=== PATIENT | female | born 1995 | race Caucasian/White ===

== ENCOUNTER 2018-10-18 18:57 | Inpatient (IN) | payer BC, MEDICAID ==
[2018-10-18] MEDS ORDERED: Tranexamic Acid 1,000 MG in Sodium Chloride 0.9% 100 ML IV PRN (19:29)
[2018-10-18] MEDS ORDERED: Carboprost Tromethamine 250 MCG/1 ML Amp IM PRN (19:29)
[2018-10-18] MEDS ORDERED: Nalbuphine 10 MG/1 ML Vial IVPUSH PRN (19:29)
[2018-10-18] MEDS ORDERED: Sodium Chloride 0.9% 2.5 ML Syringe FLUSH PRN (19:29)
[2018-10-18] MEDS ORDERED: Lidocaine 1% 50 ML MDV INJECT PRN (19:29)
[2018-10-18] MEDS ORDERED: Methylergonovine 0.2 MG/1 ML Amp IM PRN (19:29)
[2018-10-18] MEDS ORDERED: Water For Irrigation,Sterile 1,000 ML Container IRR PRN (19:29)
[2018-10-18] MEDS ORDERED: Ondansetron 4 MG/2 ML SDV IV PRN (19:29)
[2018-10-18] MEDS ORDERED: Sodium Chloride 0.9% 10 ML Syringe FLUSH PRN (19:29)
[2018-10-18] MEDS ORDERED: Misoprostol 200 MCG Tab PO PRN (19:29)
[2018-10-18] MEDS ORDERED: Oxytocin/0.9 % Sodium Chloride 30 UNIT/500 ML BAG IV SCH ×3 (19:30→19:45)
[2018-10-18] MEDS ORDERED: Dinoprostone 10 MG Insert VAG PRN (19:32)
[2018-10-18] MEDS ORDERED: Terbutaline 1 MG/ML SDV SUBCUT PRN (19:32)
[2018-10-18] MEDS: Lactated Ringers 1,000 ML IV SCH ×2 (21:19→23:52)
[2018-10-19] MEDS: Butorphanol 1 MG/ML SDV IVPUSH PRN ×2 (11:25→13:13)
--- NOTE | 2018-10-19 16:00 | PCM.DEL ---
L & D Note - General Info Date of Service: 10/19/18 Mother's Due Date: 10/25/18 - Delivery Note Labor: Spontaneous Cervical Ripening Method: Balloon Device, Oxytocin Delivery Outcome: Livebirth Delivery Mode: Vacuum Extraction Presentation: Left Occiput Anterior (NEELA) Nuchal Cord: None Prep: Other Anesthesia Type: Local, Pudendal Anesthetic: Lidocaine (Xylocaine) 0.5% Plain Local Anesthetic Volume: 1cc Amniotic Fluid Description: Clear Episiotomy Type: None Laceration: 2nd Degree Suture type: Vicryl Suture size: 3-0 Placenta: Intact, Spontaneous Cord: 3 Vessels Estimated Blood Loss: 300 Resuscitation Needed: No Score 1 min: 7 Score 5 min: 9 - General Info Date of Service: 10/19/18 - Patient Data Weight - Most Recent: 64.864 kg Lab Results Last 24 Hours: Laboratory Results - last 24 hr 10/18/18 10/18/18 10/19/18 Range/Units 19:43 19:43 10:15 WBC 8.43 (4.0-11.0) K/uL RBC 4.01 L (4.30-5.90) M/uL Hgb 12.5 (12.0-16.0) g/dL Hct 35.8 L (36.0-46.0) % MCV 89.3 (80.0-98.0) fL MCH 31.2 (27.0-32.0) pg MCHC 34.9 (31.0-37.0) g/dL RDW Std Deviation 43.1 (28.0-62.0) fl RDW Coeff of [place] 13 (11.0-15.0) % Plt Count 214 (150-400) K/uL MPV 10.60 (7.40-12.00) fL Nucleated RBC % 0.0 /100WBC Nucleated RBCs # 0 K/uL Urine Opiates Screen NEGATIVE (NEGATIVE) Ur Oxycodone Screen NEGATIVE (NEGATIVE) Urine Methadone Screen NEGATIVE (NEGATIVE) Ur Barbiturates Screen NEGATIVE (NEGATIVE) Ur Phencyclidine Scrn NEGATIVE (NEGATIVE) Ur Amphetamine Screen NEGATIVE (NEGATIVE) U Methamphetamines Scrn NEGATIVE (NEGATIVE) U Benzodiazepines Scrn NEGATIVE (NEGATIVE) U Cocaine Metab Screen NEGATIVE (NEGATIVE) U Marijuana (THC) Screen NEGATIVE (NEGATIVE) Blood Type O POSITIVE Antibody Screen NEGATIVE Med Orders - Current: Current Medications Butorphanol Tartrate (Stadol) 1 mg IVPUSH Q1H PRN PRN Reason: Pain Last Admin: 10/19/18 13:13 Dose: 1 mg Carboprost Tromethamine (Hemabate Ds) 250 mcg IM ASDIRECTED PRN PRN Reason: Post Hemorrhage Dinoprostone (Cervidil) 10 mg VAG ONETIME PRN PRN Reason: Cervical Ripening Lactated Ringer's (Ringers, Lactated) 1,000 mls @ 150 mls/hr IV ASDIRECTED LYNNE Last Admin: 10/18/18 23:52 Dose: 150 mls/hr Oxytocin/Sodium Chloride (Oxytocin 30 Unit/500 Ml-Ns) 30 unit in 500 mls @ 999 mls/hr IV TITRATE LYNNE Tranexamic Acid 1,000 mg/ (Sodium Chloride) 110 mls @ 660 mls/hr IV ONETIME PRN PRN Reason: Bleeding Oxytocin/Sodium Chloride (Oxytocin 30 Unit/500 Ml-Ns) 30 unit in 500 mls @ 2 mls/hr IV TITRATE LYNNE; Protocol Oxytocin/Sodium Chloride (Oxytocin 30 Unit/500 Ml-Ns) 30 unit in 500 mls @ 2 mls/hr IV TITRATE LYNNE; Protocol Last Titration: 10/19/18 10:30 Dose: 6 munits/min, 6 mls/hr Lidocaine HCl (Xylocaine 1%) 50 ml INJECT ONETIME PRN PRN Reason: Laceration repair Methylergonovine Maleate (Methergine) 0.2 mg IM ASDIRECTED PRN PRN Reason: Post Hemorrhage Misoprostol (Cytotec) 200 mcg PO ONETIME PRN PRN Reason: Post Hemorrhage Nalbuphine HCl (Nubain) 10 mg IVPUSH Q1H PRN PRN Reason: Pain (severe 7-10) Ondansetron HCl (Zofran) 4 mg IV Q6H PRN PRN Reason: Nausea/Vomiting Last Admin: 10/19/18 12:13 Dose: 4 mg Sodium Chloride (Saline Flush) 10 ml FLUSH ASDIRECTED PRN PRN Reason: Keep Vein Open Sodium Chloride (Saline Flush) 2.5 ml FLUSH ASDIRECTED PRN PRN Reason: Keep Vein Open Sterile Water (Sterile Water For Irrigation) 1,000 ml IRR ASDIRECTED PRN PRN Reason: delivery Terbutaline Sulfate (Brethine) 0.25 mg SUBCUT ASDIRECTED PRN PRN Reason: Tacysystole - Problem List & Annotations (1) Vaginal delivery SNOMED Code(s): 726402906 Code(s): O80 - ENCOUNTER FOR FULL-TERM UNCOMPLICATED DELIVERY Status: Acute Current Visit: Yes - Problem List Review Problem List Initiated/Reviewed/Updated: Yes - My Orders Last 24 Hours: My Active Orders 10/18/18 19:29 Patient Status [ADT] Routine May Shower [RC] ASDIRECTED Notify Provider [RC] PRN Up ad Lori [RC] ASDIRECTED Vital Signs [RC] PER UNIT ROUTINE Butorphanol [Stadol] 1 mg IVPUSH Q1H PRN Carboprost Tromethamine [Hemabate DS] 250 mcg IM ASDIRECTED PRN Lidocaine 1% [Xylocaine 1%] 50 ml INJECT ONETIME PRN Methylergonovine [Methergine] 0.2 mg IM ASDIRECTED PRN Nalbuphine [Nubain] 10 mg IVPUSH Q1H PRN Ondansetron [Zofran] 4 mg IV Q6H PRN Sodium Chloride 0.9% [Saline Flush] 10 ml FLUSH ASDIRECTED PRN Sodium Chloride 0.9% [Saline Flush] 2.5 ml FLUSH ASDIRECTED PRN Tranexamic Acid [Cyklokapron] 1,000 mg Sodium Chloride 0.9% [Normal Saline] 100 ml IV ONETIME Water For Irrigation,Sterile [Sterile Water for Irrigation] 1,000 ml IRR ASDIRECTED PRN miSOPROStol [Cytotec] 200 mcg PO ONETIME PRN Scalp Electrode [WOMSER] Per Unit Routine Peripheral IV Insertion Adult [OM.PC] Routine Resuscitation Status Routine 10/18/18 19:30 Lactated Ringers [Ringers, Lactated] 1,000 ml IV ASDIRECTED Oxytocin/0.9 % Sodium Chloride [Oxytocin 30 Unit/500 ML-NS] 30 unit in 500 ml IV TITRATE 10/18/18 19:32 Bedrest Bathroom Privileges [RC] ASDIRECTED Communication Order [RC] ASDIRECTED Communication Order [RC] ASDIRECTED Notify Provider [RC] PRN Notify Provider [RC] STAT Dinoprostone [Cervidil] 10 mg VAG ONETIME PRN Terbutaline [Brethine] 0.25 mg SUBCUT ASDIRECTED PRN 10/18/18 19:33 Medication Discontinuation Instructions [OM.PC] Per Unit Routine 10/18/18 19:35 Oxygen Therapy [RC] ASDIRECTED Vital Signs [RC] PER UNIT ROUTINE 10/18/18 19:45 Oxytocin/0.9 % Sodium Chloride [Oxytocin 30 Unit/500 ML-NS] 30 unit in 500 ml IV TITRATE Oxytocin/0.9 % Sodium Chloride [Oxytocin 30 Unit/500 ML-NS] 30 unit in 500 ml IV TITRATE 10/19/18 Breakfast Clear Liquid Diet [DIET]
[2018-10-19] MEDS ORDERED: Acetaminophen 500 MG Tab PO PRN (16:01)
[2018-10-19] MEDS ORDERED: Ibuprofen 400 MG Tab PO PRN (16:01)
[2018-10-19] MEDS ORDERED: Bisacodyl 10 MG Supp RECTAL PRN (16:01)
[2018-10-19] MEDS ORDERED: Methylergonovine 0.2 MG/1 ML Amp IM PRN (16:01)
[2018-10-19] MEDS ORDERED: oxyCODONE 5 MG Tab PO PRN (16:01)
[2018-10-19] MEDS ORDERED: Witch Hazel Medicated Pads 40/Jar TOP PRN (16:01)
[2018-10-19] MEDS ORDERED: Docusate Sodium 100 MG Cap PO PRN (16:01)
[2018-10-19] MEDS ORDERED: Lanolin 100% Cream 7 GM Tube TOP PRN (16:01)
[2018-10-19] MEDS ORDERED: Benzocaine/Menthol 20%-0.5% Spray 78 GM Cannister TOP PRN (16:01)
--- NOTE | 2018-10-19 16:52 | OR ---
SURGEON: Socorro Steven M.D. DATE OF PROCEDURE: 10/19/2018 PREOPERATIVE DIAGNOSES: 1. A 39-week intrauterine . 2. Small for gestational age. 3. History of placental abruption with prior . 4. Abnormal heart tones during labor. POSTOPERATIVE DIAGNOSES: 1. A 39-week intrauterine . 2. Small for gestational age. 3. History of placental abruption with prior . 4. Abnormal heart tones during labor. PROCEDURES: 1. Pitocin induction of labor. 2. Vacuum-assisted vaginal delivery. 3. Repair of second-degree laceration. 4. Pudendal block. PRIMARY SURGEON: Socorro Steven MD. ANESTHESIA: Pudendal and local. ESTIMATED BLOOD LOSS: Less than 300 mL. FINDINGS: 1. Live-born female. 2. scores of 7 and 9, weighing 2680 g. 3. Placenta spontaneous, Schultze, intact with 3 vessels. No evidence of placental abruption on initial examination. Placenta sent to Pathology. 4. Second-degree perineal laceration repaired. BRIEF HISTORY: This is a 23-year-old female. She presents for induction of labor at 39 weeks for intrauterine growth restriction. The abdomen is measuring less than the third percentile; estimated weight at 2600 g; and she has been followed with biophysical profiles and umbilical artery Dopplers which have been reassuring. She has a history of a due to placental abruption. She has been on [place] throughout the . She presents for induction of labor. Upon initial presentation, she had abnormal heart tones with episodes of tachycardia, marked variability, and variable decelerations. She was monitored throughout the night without intervention. By morning, she had category 1 heart tones. However, I did not feel that any prostaglandin was appropriate given the scenario. Therefore, I did place a balloon in the cervix and started Pitocin. Within 3 hours, the balloon had been expelled. She was 4 cm to 5 cm dilated, and artificial rupture of membranes was performed. Clear fluid noted. She declined epidural. She had episodes of moderate variability throughout labor with accelerations, and no significant decelerations until the last hour of labor. DESCRIPTION OF PROCEDURE: With the patient in dorsal lithotomy position, the patient pushed over a 30- minute time period to a 4+ station. At this time, heart tones were in the 80s with poor recovery. I offered to assist with vacuum. The fetus was in a left occiput anterior position, and the bladder had been drained. 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 I reviewed the risks of vacuum assistance with her including risk of cephalhematoma, scalp laceration, and intracranial hemorrhage, as well as the risk of perineal tears. Understanding these risks, she does desire to proceed. With the patient in dorsal lithotomy position, after pushing for approximately 30 minutes, pushing to a 4+ station, the vacuum was placed 2 cm anterior to the posterior fontanelle in the mid sagittal line; and with maternal expulsive efforts, I assisted pushing over 1 contraction with no pop offs and delivered the head onto the perineum. There was a fairly tight cord, but it was not completely wrapped around the neck. The shoulders and body were delivered. The was bulb suctioned by nose and mouth. Peds had been called due to the abnormal heart tones, however, scores were 7 and 9. After the cord had ceased to pulsate, it was doubly clamped and cut. Cord pHs were obtained as well as routine cord blood sampling. Pitocin was initiated after delivery of the to assist with delivery of the placenta which was delivered spontaneously, Schultze, intact with 3 vessels. On inspection of the placenta, it did not reveal any areas of abruption. Upon inspection of the pelvis and perineum, there were no periurethral, vaginal sidewall, or cervical lacerations. There was a second-degree perineal laceration. Prior to pushing, pudendal block had been placed by placing 10 mL of 1% lidocaine 1 cm medial and inferior to the spinous process, and she had good perineal relief with this. However, after delivery, I did supplement with approximately another 10 mL of 1% lidocaine in the perineum. A 3-0 Vicryl was then used to reapproximate the vaginal mucosa in a running locked fashion, followed by a deep running suture of the same for the perineum and a subcuticular suture of the same for the skin. Final sponge, needle, and instrument count were correct. There were no known complications. Mother and baby are in LDRP in good condition. FITZ / URBANO /[id number]
[2018-10-19] MEDS: Ibuprofen 800 MG Tab PO PRN (17:05)
[2018-10-19] MEDS: Acetaminophen 500 MG Tab PO PRN (17:18)
[2018-10-20] MEDS: Ibuprofen 800 MG Tab PO PRN (01:24)
[2018-10-20] MEDS ORDERED: Methylergonovine 0.2 MG/1 ML Amp ONE (04:31)
[2018-10-20] MEDS: Acetaminophen 500 MG Tab PO PRN ×2 (04:52→23:19)
--- NOTE | 2018-10-20 06:40 | PCM.PNPP ---
- General Info Date of Service: 10/20/18 Functional Status: Reports: Pain Controlled, Tolerating Diet, Ambulating, Urinating, Other (passed clot 250 ml early this am, received one dose of methergine, bleeding now improved. ) - Review of Systems General: Reports: No Symptoms HEENT: Reports: No Symptoms Pulmonary: Reports: No Symptoms Cardiovascular: Reports: No Symptoms Gastrointestinal: Reports: No Symptoms Genitourinary: Reports: No Symptoms Musculoskeletal: Reports: No Symptoms Skin: Reports: No Symptoms Neurological: Reports: No Symptoms Psychiatric: Reports: No Symptoms - General Info Date of Service: 10/20/18 - Patient Data Vital Signs - Most Recent: Last Vital Signs Temp 36.7 C 10/20/18 04:15 Pulse 74 10/20/18 04:15 Resp 17 10/20/18 04:15 BP 98/59 L 10/20/18 04:15 Pulse Ox 97 10/20/18 04:15 Weight - Most Recent: 64.864 kg Lab Results - Last 24 Hours: Laboratory Results - last 24 hr 10/19/18 10/20/18 Range/Units 10:15 04:55 Hgb 10.8 L (12.0-16.0) g/dL Hct 31.3 L (36.0-46.0) % Urine Opiates Screen NEGATIVE (NEGATIVE) Ur Oxycodone Screen NEGATIVE (NEGATIVE) Urine Methadone Screen NEGATIVE (NEGATIVE) Ur Barbiturates Screen NEGATIVE (NEGATIVE) Ur Phencyclidine Scrn NEGATIVE (NEGATIVE) Ur Amphetamine Screen NEGATIVE (NEGATIVE) U Methamphetamines Scrn NEGATIVE (NEGATIVE) U Benzodiazepines Scrn NEGATIVE (NEGATIVE) U Cocaine Metab Screen NEGATIVE (NEGATIVE) U Marijuana (THC) Screen NEGATIVE (NEGATIVE) Med Orders - Current: Current Medications Acetaminophen (Tylenol Extra Strength) 500 mg PO Q4H PRN PRN Reason: Pain Last Admin: 10/20/18 04:52 Dose: 500 mg Acetaminophen (Tylenol Extra Strength) 1,000 mg PO Q4H PRN PRN Reason: Pain Benzocaine/Menthol (Dermoplast Pain Relief 20%-0.5% [place]) 78 gm TOP ASDIRECTED PRN PRN Reason: Perineal Comfort Measure Last Admin: 10/19/18 17:23 Dose: 1 canister Bisacodyl (Dulcolax) 10 mg RECTAL ONETIME PRN PRN Reason: Constipation Docusate Sodium (Colace) 100 mg PO BID PRN PRN Reason: Constipation Last Admin: 10/19/18 21:43 Dose: 100 mg Emollient Ointment (Lansinoh Hpa) 0 gm TOP ASDIRECTED PRN PRN Reason: Sore Nipples Ibuprofen (Motrin) 400 mg PO Q4H PRN PRN Reason: Pain Ibuprofen (Motrin) 800 mg PO Q6H PRN PRN Reason: Pain Last Admin: 10/20/18 01:24 Dose: 800 mg Methylergonovine Maleate (Methergine) 0.2 mg IM ONETIME PRN PRN Reason: Excessive Vaginal Bleeding Last Admin: 10/20/18 04:40 Dose: 0.2 mg Oxycodone HCl (Oxycodone) 5 mg PO Q2H PRN PRN Reason: Pain Last Admin: 10/19/18 17:21 Dose: 5 mg Witch Therese (Tucks) 1 pad TOP ASDIRECTED PRN PRN Reason: comfort care Last Admin: 10/19/18 17:21 Dose: 1 container Discontinued Medications Butorphanol Tartrate (Stadol) 1 mg IVPUSH Q1H PRN PRN Reason: Pain Last Admin: 10/19/18 13:13 Dose: 1 mg Carboprost Tromethamine (Hemabate Ds) 250 mcg IM ASDIRECTED PRN PRN Reason: Post Hemorrhage Dinoprostone (Cervidil) 10 mg VAG ONETIME PRN PRN Reason: Cervical Ripening Lactated Ringer's (Ringers, Lactated) 1,000 mls @ 150 mls/hr IV ASDIRECTED LYNNE Last Admin: 10/18/18 23:52 Dose: 150 mls/hr Oxytocin/Sodium Chloride (Oxytocin 30 Unit/500 Ml-Ns) 30 unit in 500 mls @ 999 mls/hr IV TITRATE LYNNE Tranexamic Acid 1,000 mg/ (Sodium Chloride) 110 mls @ 660 mls/hr IV ONETIME PRN PRN Reason: Bleeding Oxytocin/Sodium Chloride (Oxytocin 30 Unit/500 Ml-Ns) 30 unit in 500 mls @ 2 mls/hr IV TITRATE LYNNE; Protocol Oxytocin/Sodium Chloride (Oxytocin 30 Unit/500 Ml-Ns) 30 unit in 500 mls @ 2 mls/hr IV TITRATE LYNNE; Protocol Last Titration: 10/19/18 15:40 Dose: 500 munits/min, 500 mls/hr Lidocaine HCl (Xylocaine 1%) 50 ml INJECT ONETIME PRN PRN Reason: Laceration repair Last Admin: 10/19/18 15:30 Dose: 50 ml Methylergonovine Maleate (Methergine) 0.2 mg IM ASDIRECTED PRN PRN Reason: Post Hemorrhage Methylergonovine Maleate (Methergine) Confirm Administered Dose 0.2 mg .ROUTE .[facility] Stop: 10/20/18 04:32 Misoprostol (Cytotec) 200 mcg PO ONETIME PRN PRN Reason: Post Hemorrhage Nalbuphine HCl (Nubain) 10 mg IVPUSH Q1H PRN PRN Reason: Pain (severe 7-10) Ondansetron HCl (Zofran) 4 mg IV Q6H PRN PRN Reason: Nausea/Vomiting Last Admin: 10/19/18 12:13 Dose: 4 mg Sodium Chloride (Saline Flush) 10 ml FLUSH ASDIRECTED PRN PRN Reason: Keep Vein Open Sodium Chloride (Saline Flush) 2.5 ml FLUSH ASDIRECTED PRN PRN Reason: Keep Vein Open Sterile Water (Sterile Water For Irrigation) 1,000 ml IRR ASDIRECTED PRN PRN Reason: delivery Last Admin: 10/19/18 15:30 Dose: 1,000 ml Terbutaline Sulfate (Brethine) 0.25 mg SUBCUT ASDIRECTED PRN PRN Reason: Tacysystole - Infant Interaction Disposition, : in Room with Family Interaction: Holding Support Person: Significant Other - Recovery Exam Fundal Tone: Firm Fundal Level: At Umbilicus Fundal Placement: Midline Lochia Amount: Moderate Lochia Color: Brownish Perineum Description: Ecchymotic, Edematous Episiotomy/Laceration: Approximated Bladder Status: Voiding Urinary Elimination: Voided - Exam General: Alert, Oriented Neck: Supple Lungs: Normal Respiratory Effort GI/Abdominal Exam: Soft, Non-Tender, No Organomegaly, No Distention, No Abnormal Bruit Extremities: Normal Inspection, Non-Tender, No Pedal Edema Skin: Warm, Dry, Intact Wound/Incisions: Healing Well Neurological: No New Focal Deficit Psy/Mental Status: Alert, Normal Affect, Normal Mood - Problem List & Annotations (1) Vaginal delivery SNOMED Code(s): 250974414 Code(s): O80 - ENCOUNTER FOR FULL-TERM UNCOMPLICATED DELIVERY Status: Acute Current Visit: Yes - Problem List Review Problem List Initiated/Reviewed/Updated: Yes - My Orders Last 24 Hours: My Active Orders 10/19/18 16:01 Patient Status [ADT] Routine May Shower [RC] ASDIRECTED Up ad Lori [RC] ASDIRECTED Vital Signs [RC] PER UNIT ROUTINE Acetaminophen [Tylenol Extra Strength] 1,000 mg PO Q4H PRN Acetaminophen [Tylenol Extra Strength] 500 mg PO Q4H PRN Benzocaine/Menthol [Dermoplast Pain Relief 20%-0.5% [place]] 78 gm TOP ASDIRECTED PRN Bisacodyl [Dulcolax] 10 mg RECTAL ONETIME PRN Docusate Sodium [Colace] 100 mg PO BID PRN Ibuprofen [Motrin] 400 mg PO Q4H PRN Ibuprofen [Motrin] 800 mg PO Q6H PRN Lanolin [Lansinoh HPA] See Dose Instructions TOP ASDIRECTED PRN Methylergonovine [Methergine] 0.2 mg IM ONETIME PRN Witch Therese [Tucks] 1 pad TOP ASDIRECTED PRN oxyCODONE 5 mg PO Q2H PRN Assess Lochia [WOMSER] Per Unit Routine Assess Uterine Involution [WOMSER] Per Unit Routine Perineal Care [OM.PC] Per Unit Routine Peripheral IV Discontinue [OM.PC] Routine Resuscitation Status Routine 10/19/18 16:02 Omeprazole Magnesium [Prilosec Otc] DOSE UNIT RTE FREQ PRN 10/19/18 16:15 PNV #116/Iron Fumarate/FA/DHA [Expecta Combo Pack] DOSE UNIT RTE FREQ 10/19/18 Dinner Regular Diet [DIET] - Assessment Assessment:: PPD#1 after , increased bleeding last night improved after methergine, vitals stable and hemoglobin is normal for . - Plan Plan:: Continue with care, anticipate discharge in am, recheck hemoglobin in am.
[2018-10-21 07:45] VITALS: BP 106/56
--- NOTE | 2018-10-21 08:09 | PCM.PNPP ---
<Alyce Aranda - Last Filed: 10/21/18 08:07> - General Info Date of Service: 10/21/18 Functional Status: Reports: Pain Controlled, Tolerating Diet, Ambulating, Urinating - Review of Systems General: Denies: Fever, Weakness, Fatigue Pulmonary: Denies: Shortness of Breath, Pleuritic Chest Pain, Cough Cardiovascular: Denies: Chest Pain, Palpitations, Dyspnea on Exertion Gastrointestinal: Denies: Abdominal Pain Genitourinary: Denies: Dysuria - General Info Date of Service: 10/21/18 - Patient Data Vital Signs - Most Recent: Last Vital Signs Temp 36.8 C 10/21/18 07:10 Pulse 77 10/21/18 07:10 Resp 17 10/21/18 07:10 BP 106/56 L 10/21/18 07:10 Pulse Ox 98 10/21/18 07:10 Weight - Most Recent: 64.864 kg Lab Results - Last 24 Hours: Laboratory Results - last 24 hr 10/21/18 Range/Units 06:55 WBC 10.31 (4.0-11.0) K/uL RBC 3.24 L (4.30-5.90) M/uL Hgb 10.2 L (12.0-16.0) g/dL Hct 29.4 L (36.0-46.0) % MCV 90.7 (80.0-98.0) fL MCH 31.5 (27.0-32.0) pg MCHC 34.7 (31.0-37.0) g/dL RDW Std Deviation 44.4 (28.0-62.0) fl RDW Coeff of Ashanti 14 (11.0-15.0) % Plt Count 173 (150-400) K/uL MPV 10.00 (7.40-12.00) fL Nucleated RBC % 0.0 /100WBC Nucleated RBCs # 0 K/uL Med Orders - Current: Current Medications Acetaminophen (Tylenol Extra Strength) 500 mg PO Q4H PRN PRN Reason: Pain Last Admin: 10/20/18 23:19 Dose: 500 mg Acetaminophen (Tylenol Extra Strength) 1,000 mg PO Q4H PRN PRN Reason: Pain Last Admin: 10/20/18 13:38 Dose: 1,000 mg Benzocaine/Menthol (Dermoplast Pain Relief 20%-0.5% Darling) 78 gm TOP ASDIRECTED PRN PRN Reason: Perineal Comfort Measure Last Admin: 10/19/18 17:23 Dose: 1 canister Bisacodyl (Dulcolax) 10 mg RECTAL ONETIME PRN PRN Reason: Constipation Docusate Sodium (Colace) 100 mg PO BID PRN PRN Reason: Constipation Last Admin: 10/19/18 21:43 Dose: 100 mg Emollient Ointment (Lansinoh Hpa) 0 gm TOP ASDIRECTED PRN PRN Reason: Sore Nipples Ibuprofen (Motrin) 400 mg PO Q4H PRN PRN Reason: Pain Ibuprofen (Motrin) 800 mg PO Q6H PRN PRN Reason: Pain Last Admin: 10/20/18 01:24 Dose: 800 mg Methylergonovine Maleate (Methergine) 0.2 mg IM ONETIME PRN PRN Reason: Excessive Vaginal Bleeding Last Admin: 10/20/18 04:40 Dose: 0.2 mg Oxycodone HCl (Oxycodone) 5 mg PO Q2H PRN PRN Reason: Pain Last Admin: 10/19/18 17:21 Dose: 5 mg Witch Therese (Tucks) 1 pad TOP ASDIRECTED PRN PRN Reason: comfort care Last Admin: 10/19/18 17:21 Dose: 1 container Discontinued Medications Butorphanol Tartrate (Stadol) 1 mg IVPUSH Q1H PRN PRN Reason: Pain Last Admin: 10/19/18 13:13 Dose: 1 mg Carboprost Tromethamine (Hemabate Ds) 250 mcg IM ASDIRECTED PRN PRN Reason: Post Hemorrhage Dinoprostone (Cervidil) 10 mg VAG ONETIME PRN PRN Reason: Cervical Ripening Lactated Ringer's (Ringers, Lactated) 1,000 mls @ 150 mls/hr IV ASDIRECTED LYNNE Last Admin: 10/18/18 23:52 Dose: 150 mls/hr Oxytocin/Sodium Chloride (Oxytocin 30 Unit/500 Ml-Ns) 30 unit in 500 mls @ 999 mls/hr IV TITRATE LYNNE Tranexamic Acid 1,000 mg/ (Sodium Chloride) 110 mls @ 660 mls/hr IV ONETIME PRN PRN Reason: Bleeding Oxytocin/Sodium Chloride (Oxytocin 30 Unit/500 Ml-Ns) 30 unit in 500 mls @ 2 mls/hr IV TITRATE LYNNE; Protocol Oxytocin/Sodium Chloride (Oxytocin 30 Unit/500 Ml-Ns) 30 unit in 500 mls @ 2 mls/hr IV TITRATE LYNNE; Protocol Last Titration: 10/19/18 15:40 Dose: 500 munits/min, 500 mls/hr Lidocaine HCl (Xylocaine 1%) 50 ml INJECT ONETIME PRN PRN Reason: Laceration repair Last Admin: 10/19/18 15:30 Dose: 50 ml Methylergonovine Maleate (Methergine) 0.2 mg IM ASDIRECTED PRN PRN Reason: Post Hemorrhage Methylergonovine Maleate (Methergine) Confirm Administered Dose 0.2 mg .ROUTE .[email or web address]MED ONE Stop: 10/20/18 04:32 Last Admin: 10/20/18 08:26 Dose: Not Given Misoprostol (Cytotec) 200 mcg PO ONETIME PRN PRN Reason: Post Hemorrhage Nalbuphine HCl (Nubain) 10 mg IVPUSH Q1H PRN PRN Reason: Pain (severe 7-10) Ondansetron HCl (Zofran) 4 mg IV Q6H PRN PRN Reason: Nausea/Vomiting Last Admin: 10/19/18 12:13 Dose: 4 mg Sodium Chloride (Saline Flush) 10 ml FLUSH ASDIRECTED PRN PRN Reason: Keep Vein Open Sodium Chloride (Saline Flush) 2.5 ml FLUSH ASDIRECTED PRN PRN Reason: Keep Vein Open Sterile Water (Sterile Water For Irrigation) 1,000 ml IRR ASDIRECTED PRN PRN Reason: delivery Last Admin: 10/19/18 15:30 Dose: 1,000 ml Terbutaline Sulfate (Brethine) 0.25 mg SUBCUT ASDIRECTED PRN PRN Reason: Tacysystole - Infant Interaction Infant Disposition, : in Room with Family Interaction: Holding Infant Support Person: Significant Other - Recovery Exam Fundal Tone: Firm Fundal Level: 2 Fingerbreadths Below Umbilicus Fundal Placement: Midline Lochia Amount: Small Lochia Color: Rubra/Red Perineum Description: Other (see below) Other Perinuem Description: 2nd degree midline laceration Episiotomy/Laceration: Approximated Bladder Status: Voiding Urinary Elimination: Voided - Exam General: Alert, Oriented Neck: Supple Lungs: Clear to Auscultation, Normal Respiratory Effort Cardiovascular: Regular Rate, Regular Rhythm GI/Abdominal Exam: Normal Bowel Sounds, Soft, Non-Tender, No Distention, No Mass Extremities: Normal Inspection, Non-Tender, Normal Capillary Refill, Pedal Edema (trace) Skin: Warm, Dry, Intact - Problem List & Annotations (1) Vaginal delivery SNOMED Code(s): 095388822 Code(s): O80 - ENCOUNTER FOR FULL-TERM UNCOMPLICATED DELIVERY Status: Acute Current Visit: Yes - Problem List Review Problem List Initiated/Reviewed/Updated: Yes - Assessment Assessment:: PPD#2 after , Minimal bleeding since dose of Methergine. Vitals stable and hemoglobin is normal for . - Plan Plan:: Discharge home today. Can use OTC ibuprofen/tylenol as needed for pain. Instructed patient to call if she develops fever greater than 101 or bleeding through a large pad an hour. F/U with [facility] in 6 weeks <Dyan Molina - Last Filed: 10/21/18 08:22> - Patient Data Vital Signs - Most Recent: Last Vital Signs Temp 36.8 C 10/21/18 07:10 Pulse 77 10/21/18 07:10 Resp 17 10/21/18 07:10 BP 106/56 L 10/21/18 07:10 Pulse Ox 98 10/21/18 07:10 Lab Results - Last 24 Hours: Laboratory Results - last 24 hr 10/21/18 Range/Units 06:55 WBC 10.31 (4.0-11.0) K/uL RBC 3.24 L (4.30-5.90) M/uL Hgb 10.2 L (12.0-16.0) g/dL Hct 29.4 L (36.0-46.0) % MCV 90.7 (80.0-98.0) fL MCH 31.5 (27.0-32.0) pg MCHC 34.7 (31.0-37.0) g/dL RDW Std Deviation 44.4 (28.0-62.0) fl RDW Coeff of Ash[place] 14 (11.0-15.0) % Plt Count 173 (150-400) K/uL MPV 10.00 (7.40-12.00) fL Nucleated RBC % 0.0 /100WBC Nucleated RBCs # 0 K/uL Med Orders - Current: Current Medications Acetaminophen (Tylenol Extra Strength) 500 mg PO Q4H PRN PRN Reason: Pain Last Admin: 10/20/18 23:19 Dose: 500 mg Acetaminophen (Tylenol Extra Strength) 1,000 mg PO Q4H PRN PRN Reason: Pain Last Admin: 10/20/18 13:38 Dose: 1,000 mg Benzocaine/Menthol (Dermoplast Pain Relief 20%-0.5% Darling) 78 gm TOP ASDIRECTED PRN PRN Reason: Perineal Comfort Measure Last Admin: 10/19/18 17:23 Dose: 1 canister Bisacodyl (Dulcolax) 10 mg RECTAL ONETIME PRN PRN Reason: Constipation Docusate Sodium (Colace) 100 mg PO BID PRN PRN Reason: Constipation Last Admin: 10/19/18 21:43 Dose: 100 mg Emollient Ointment (Lansinoh Hpa) 0 gm TOP ASDIRECTED PRN PRN Reason: Sore Nipples Ibuprofen (Motrin) 400 mg PO Q4H PRN PRN Reason: Pain Ibuprofen (Motrin) 800 mg PO Q6H PRN PRN Reason: Pain Last Admin: 10/21/18 08:21 Dose: 800 mg Methylergonovine Maleate (Methergine) 0.2 mg IM ONETIME PRN PRN Reason: Excessive Vaginal Bleeding Last Admin: 10/20/18 04:40 Dose: 0.2 mg Oxycodone HCl (Oxycodone) 5 mg PO Q2H PRN PRN Reason: Pain Last Admin: 10/19/18 17:21 Dose: 5 mg Witch Therese (Tucks) 1 pad TOP ASDIRECTED PRN PRN Reason: comfort care Last Admin: 10/19/18 17:21 Dose: 1 container Discontinued Medications Butorphanol Tartrate (Stadol) 1 mg IVPUSH Q1H PRN PRN Reason: Pain Last Admin: 10/19/18 13:13 Dose: 1 mg Carboprost Tromethamine (Hemabate Ds) 250 mcg IM ASDIRECTED PRN PRN Reason: Post Hemorrhage Dinoprostone (Cervidil) 10 mg VAG ONETIME PRN PRN Reason: Cervical Ripening Lactated Ringer's (Ringers, Lactated) 1,000 mls @ 150 mls/hr IV ASDIRECTED LYNNE Last Admin: 10/18/18 23:52 Dose: 150 mls/hr Oxytocin/Sodium Chloride (Oxytocin 30 Unit/500 Ml-Ns) 30 unit in 500 mls @ 999 mls/hr IV TITRATE LYNEN Tranexamic Acid 1,000 mg/ (Sodium Chloride) 110 mls @ 660 mls/hr IV ONETIME PRN PRN Reason: Bleeding Oxytocin/Sodium Chloride (Oxytocin 30 Unit/500 Ml-Ns) 30 unit in 500 mls @ 2 mls/hr IV TITRATE LYNNE; Protocol Oxytocin/Sodium Chloride (Oxytocin 30 Unit/500 Ml-Ns) 30 unit in 500 mls @ 2 mls/hr IV TITRATE LYNNE; Protocol Last Titration: 10/19/18 15:40 Dose: 500 munits/min, 500 mls/hr Lidocaine HCl (Xylocaine 1%) 50 ml INJECT ONETIME PRN PRN Reason: Laceration repair Last Admin: 10/19/18 15:30 Dose: 50 ml Methylergonovine Maleate (Methergine) 0.2 mg IM ASDIRECTED PRN PRN Reason: Post Hemorrhage Methylergonovine Maleate (Methergine) Confirm Administered Dose 0.2 mg .ROUTE .[facility] [[email or web address]MED ONE Stop: 10/20/18 04:32 Last Admin: 10/20/18 08:26 Dose: Not Given Misoprostol (Cytotec) 200 mcg PO ONETIME PRN PRN Reason: Post Hemorrhage Nalbuphine HCl (Nubain) 10 mg IVPUSH Q1H PRN PRN Reason: Pain (severe 7-10) Ondansetron HCl (Zofran) 4 mg IV Q6H PRN PRN Reason: Nausea/Vomiting Last Admin: 10/19/18 12:13 Dose: 4 mg Sodium Chloride (Saline Flush) 10 ml FLUSH ASDIRECTED PRN PRN Reason: Keep Vein Open Sodium Chloride (Saline Flush) 2.5 ml FLUSH ASDIRECTED PRN PRN Reason: Keep Vein Open Sterile Water (Sterile Water For Irrigation) 1,000 ml IRR ASDIRECTED PRN PRN Reason: delivery Last Admin: 10/19/18 15:30 Dose: 1,000 ml Terbutaline Sulfate (Brethine) 0.25 mg SUBCUT ASDIRECTED PRN PRN Reason: Tacysystole - Plan Plan:: Patient seen and examined, agree with above
[2018-10-21] MEDS: Ibuprofen 800 MG Tab PO PRN (08:21)
== END 2018-10-21 10:30 | disposition home or self-care (01) | DRG 560 ==
LOC: MW.OBCHECK 18:57 → MW.OB 19:05 → MW.OBCHECK 19:29 → MW.OB 19:29 → OBSVTOIN 10-19 16:01 → MW.OB 10-19 19:00
PROVIDERS: ADMIT Obstetrics & Gynecology; ATTEND Obstetrics & Gynecology
PROC: 0U7C7ZZ Dilation of Cervix, Via Natural or Artificial Opening (ICD-10-PCS; principal; 2018-10-19)
PROC: 10907ZC Drainage of Amniotic Fluid, Therapeutic from Products of Conception, Via Natural or Artificial Opening (ICD-10-PCS; principal; 2018-10-19)
PROC: 6A550ZT Pheresis of Cord Blood Stem Cells, Single (ICD-10-PCS; principal; 2018-10-19)
PROC: 0KQM0ZZ Repair Perineum Muscle, Open Approach (ICD-10-PCS; principal; 2018-10-19)
PROC: 3E033VJ Introduction of Other Hormone into Peripheral Vein, Percutaneous Approach (ICD-10-PCS; principal; 2018-10-19)
PROC: 10D07Z6 Extraction of Products of Conception, Vacuum, Via Natural or Artificial Opening (ICD-10-PCS; principal; 2018-10-19)
DX: O36.5930 Maternal care for other known or suspected poor fetal growth, third trimester, not applicable or unspecified (principal); O70.1 Second degree perineal laceration during delivery; O76 Abnormality in fetal heart rate and rhythm complicating labor and delivery; O69.1XX0 Labor and delivery complicated by cord around neck, with compression, not applicable or unspecified; Z3A.39 39 weeks gestation of pregnancy; Z37.0 Single live birth; O72.2 Delayed and secondary postpartum hemorrhage
CPT/HCPCS: 36415; 59025; 59200; 59409; 80305-QW; 85014; 85018; 85027; 86850; 86900; 86901; 88307; A9270-GY; J0595; J2001; J2210; J2405; J2590; J7120

== ENCOUNTER 2018-10-23 13:23 | Inpatient (IN) | payer BC, MEDICAID ==
[2018-10-23] MEDS ORDERED: Sodium Chloride 0.9% 1,000 ML IV ONE ×2 (13:44→15:08)
--- NOTE | 2018-10-23 13:46 | EDM.PDOC ---
ED HPI GENERAL MEDICAL PROBLEM - General Chief Complaint: General Stated Complaint: BACK HURTING AND CHILLS Time Seen by Provider: 10/23/18 13:45 Source of Information: Reports: Patient History Limitations: Reports: No Limitations - History of Present Illness INITIAL COMMENTS - FREE TEXT/NARRATIVE: HISTORY AND PHYSICAL: History of present illness: Patient is a 23-year-old female here with complaint of back pain and chills that began 1 hour ago. She is 5 days post , vaginal delivery without complications. She did not receive an epidural. She denies chest pain, shortness of breath, new or worsening abdominal pain, cough, purulent vaginal discharge, headache. She states she did have a single episode of diarrhea prior to coming to the ED. She is some but mostly formula feeding, she denies breast pain or erythema. Review of systems: As per history of present illness and below otherwise all systems reviewed and negative. Past medical history: As per history of present illness and as reviewed below otherwise noncontributory. Surgical history: As per history of present illness and as reviewed below otherwise noncontributory. Social history: No reported history of drug or alcohol abuse. Family history: As per history of present illness and as reviewed below otherwise noncontributory. Physical exam: General: Patient sitting comfortably in no acute distress and nontoxic appearing HEENT: Atraumatic, normocephalic, pupils reactive, negative for conjunctival pallor or scleral icterus, mucous membranes moist, throat clear, neck supple, nontender, trachea midline. No meningeal signs. Lungs: Clear to auscultation, breath sounds equal bilaterally, chest nontender. Heart: S1S2, regular, negative for clicks, rubs, or overt murmur. Abdomen: Moderate abdominal tenderness to palpation. Soft, nondistended. Negative for masses or hepatosplenomegaly. Right costovertebral tenderness. Pelvis: Stable nontender. Genitourinary: Deferred. Rectal: Deferred. Spine: pain to palpation of lumbar paraspinals bilaterally. Extremities: Atraumatic, negative for cords or calf pain. Neurovascular unremarkable. Neuro: Awake, alert, oriented. Cranial nerves II through XII unremarkable. Cerebellum unremarkable. Motor and sensory unremarkable throughout. Exam nonfocal. Notes: Diagnostics: CBC, CMP, d-dimer, UA, blood culture x 2, EKG, lipase, Type & Screen Therapeutics: 2L Normal Saline IV Zosyn IV Vancomycin IV Prescriptions: Impression: Pyelonephritis, r/o sepsis Plan: Discussed with Dr. Munson, patient will be admitted to inpatient for pyelonephritis and rule out sepsis. Definitive disposition and diagnosis as appropriate pending reevaluation and review of above. back Pain Score (Numeric/FACES): 10 - Related Data Allergies Allergy/AdvReac Type Severity Reaction Status Date / Time No Known Allergies Allergy Verified 10/23/18 13:30 Home Meds: Home Meds Omeprazole Magnesium [Prilosec Otc] 10/18/18 [History] PNV #116/Iron Fumarate/FA/DHA [Expecta Combo Pack] 1 10/18/18 [History] Past Medical History - Past Health History Medical/Surgical History: Denies Medical/Surgical History HEENT History: Reports: None Cardiovascular History: Reports: None Respiratory History: Reports: None Gastrointestinal History: Reports: None Genitourinary History: Reports: None MANAGER ADMINISTRATION History: Reports: Musculoskeletal History: Reports: None Neurological History: Reports: None Psychiatric History: Reports: None Endocrine/Metabolic History: Reports: None Hematologic History: Reports: None Immunologic History: Reports: None Oncologic (Cancer) History: Reports: None Dermatologic History: Reports: None - Infectious Disease History Infectious Disease History: Reports: Chicken Pox - Past Surgical History Head Surgeries/Procedures: Reports: None HEENT Surgical History: Reports: None Cardiovascular Surgical History: Reports: None Respiratory Surgical History: Reports: None GI Surgical History: Reports: None Female Surgical History: Reports: None Endocrine Surgical History: Reports: None Neurological Surgical History: Reports: None Musculoskeletal Surgical History: Reports: None Oncologic Surgical History: Reports: None Dermatological Surgical History: Reports: None Social & Family History - Family History Family Medical History: Noncontributory HEENT: Reports: None Cardiac: Reports: None Respiratory: Reports: None GI: Reports: None : Reports: None OBGYN: Reports: None Musculoskeletal: Reports: None Neurological: Reports: None Psychiatric: Reports: None Endocrine/Metabolic: Reports: None Hematologic: Reports: None Dermatologic: Reports: None Oncologic: Reports: None - Tobacco Use Smoking Status *Q: Never Smoker - Caffeine Use Caffeine Use: Reports: Coffee, Soda Caffeine Use Comment: 1 cup, 1 can /day - Recreational Drug Use Recreational Drug Use: No - Living Situation & Occupation Living situation: Reports: with Family ED ROS GENERAL - Review of Systems Review Of Systems: ROS reveals no pertinent complaints other than HPI. ED EXAM, GENERAL - Physical Exam Exam: See Below (see dictation) Course - Vital Signs Last Recorded V/S: Last Vital Signs Temp 98.7 F 10/23/18 13:30 Pulse 114 H 10/23/18 14:40 Resp 22 H 10/23/18 13:30 BP 105/51 L 10/23/18 14:40 Pulse Ox 98 10/23/18 14:40 - Orders/Labs/Meds Orders: Active Orders 24 hr Category Date Time Status EKG Documentation Completion [RC] STAT Care 10/23/18 13:50 Active CULTURE BLOOD [BC] Stat Lab 10/23/18 13:54 Received CULTURE BLOOD [BC] Stat Lab 10/23/18 14:00 Received CULTURE URINE [RM] Stat Lab 10/23/18 13:30 Received D Dimer [D-DIMER QUANTITATIVE] [COAG] Stat Lab 10/23/18 13:40 Received LACTATE WITH REFLEX [BG] Stat Lab 10/23/18 15:08 Ordered Piperacillin/Tazobactam [Piperacil-Tazobact] 3.375 gm Med 10/23/18 15:03 Ordered Sodium Chloride 0.9% [Normal Saline] 50 ml IV ONETIME Sodium Chloride 0.9% [Normal Saline] 1,000 ml Med 10/23/18 15:08 Ordered IV STAT Vancomycin [Vancocin] 1 gm Med 10/23/18 15:03 Ordered Sodium Chloride 0.9% [Normal Saline] 250 ml IV ONETIME Blood Culture x2 Reflex Set [OM.PC] Stat Oth 10/23/18 13:45 Ordered Medication Orders Piperacillin Sod/Tazobactam (Sod 3.375 gm/ Sodium Chloride) 50 mls @ 100 mls/ hr IV ONETIME ONE Stop: 10/23/18 15:32 Vancomycin HCl 1 gm/ Sodium (Chloride) 250 mls @ 250 mls/hr IV ONETIME ONE Stop: 10/23/18 16:02 Labs: Laboratory Tests 10/23/18 10/23/18 10/23/18 Range/Units 13:30 13:40 13:40 WBC 11.55 H (4.0-11.0) K/uL RBC 3.58 L (4.30-5.90) M/uL Hgb 11.2 L (12.0-16.0) g/dL Hct 32.2 L (36.0-46.0) % MCV 89.9 (80.0-98.0) fL MCH 31.3 (27.0-32.0) pg MCHC 34.8 (31.0-37.0) g/dL RDW Std Deviation 43.1 (28.0-62.0) fl RDW Coeff of Ashanti 13 (11.0-15.0) % Plt Count 241 (150-400) K/uL MPV 9.90 (7.40-12.00) fL Neut % (Auto) 81.7 H (48.0-80.0) % Lymph % (Auto) 13.9 L (16.0-40.0) % [place] % (Auto) 2.6 (0.0-15.0) % Eos % (Auto) 1.7 (0.0-7.0) % Baso % (Auto) 0.1 (0.0-1.5) % Neut # (Auto) 9.4 H (1.4-5.7) K/uL Lymph # (Auto) 1.6 (0.6-2.4) K/uL [place] # (Auto) 0.3 (0.0-0.8) K/uL Eos # (Auto) 0.2 (0.0-0.7) K/uL Baso # (Auto) 0.0 (0.0-0.1) K/uL Nucleated RBC % 0.0 /100WBC Nucleated RBCs # 0 K/uL Sodium 138 (136-145) mmol/L Potassium 3.6 (3.5-5.1) mmol/L Chloride 104 (98-107) mmol/L Carbon Dioxide 22.6 (21.0-32.0) mmol/L BUN 8 (7.0-18.0) mg/dL Creatinine 0.6 (0.6-1.0) mg/dL Est Cr Clr Drug Dosing 108.16 mL/min Estimated GFR (MDRD) > 60.0 ml/min Glucose 98 (74-106) mg/dL Calcium 9.0 (8.5-10.1) mg/dL Total Bilirubin 0.4 (0.2-1.0) mg/dL AST 26 (15-37) IU/L ALT 25 (14-63) IU/L Alkaline Phosphatase 106 (46-116) U/L Total Protein 6.6 (6.4-8.2) g/dL Albumin 2.6 L (3.4-5.0) g/dL Globulin 4.0 (2.6-4.0) g/dL Albumin/Globulin Ratio 0.7 L (0.9-1.6) Lipase (73-393) U/L Urine Color YELLOW Urine Appearance CLEAR Urine pH 6.0 (5.0-8.0) Ur Specific [place] 1.020 (1.001-1.035) Urine Protein 100 H (NEGATIVE) mg/dL Urine Glucose (UA) NEGATIVE (NEGATIVE) mg/dL Urine Ketones TRACE H (NEGATIVE) mg/dL Urine Occult Blood MODERATE H (NEGATIVE) Urine Nitrite POSITIVE H (NEGATIVE) Urine Bilirubin NEGATIVE (NEGATIVE) Urine Urobilinogen 0.2 (<2.0) EU/dL Ur Leukocyte Esterase MODERATE H (NEGATIVE) Urine RBC 4-6 (0-2/HPF) Urine WBC 150-200 (0-5/HPF) Ur Epithelial Cells FEW (NONE-FEW) Urine Bacteria FEW (NEGATIVE) Blood Type Antibody Screen 10/23/18 10/23/18 Range/Units 13:40 14:15 WBC (4.0-11.0) K/uL RBC (4.30-5.90) M/uL Hgb (12.0-16.0) g/dL Hct (36.0-46.0) % MCV (80.0-98.0) fL MCH (27.0-32.0) pg MCHC (31.0-37.0) g/dL RDW Std Deviation (28.0-62.0) fl RDW Coeff of Ash[place] (11.0-15.0) % Plt Count (150-400) K/uL MPV (7.40-12.00) fL Neut % (Auto) (48.0-80.0) % Lymph % (Auto) (16.0-40.0) % [place] % (Auto) (0.0-15.0) % Eos % (Auto) (0.0-7.0) % Baso % (Auto) (0.0-1.5) % Neut # (Auto) (1.4-5.7) K/uL Lymph # (Auto) (0.6-2.4) K/uL [place] # (Auto) (0.0-0.8) K/uL Eos # (Auto) (0.0-0.7) K/uL Baso # (Auto) (0.0-0.1) K/uL Nucleated RBC % /100WBC Nucleated RBCs # K/uL Sodium (136-145) mmol/L Potassium (3.5-5.1) mmol/L Chloride (98-107) mmol/L Carbon Dioxide (21.0-32.0) mmol/L BUN (7.0-18.0) mg/dL Creatinine (0.6-1.0) mg/dL Est Cr Clr Drug Dosing mL/min Estimated GFR (MDRD) ml/min Glucose (74-106) mg/dL Calcium (8.5-10.1) mg/dL Total Bilirubin (0.2-1.0) mg/dL AST (15-37) IU/L ALT (14-63) IU/L Alkaline Phosphatase (46-116) U/L Total Protein (6.4-8.2) g/dL Albumin (3.4-5.0) g/dL Globulin (2.6-4.0) g/dL Albumin/Globulin Ratio (0.9-1.6) Lipase 111 (73-393) U/L Urine Color Urine Appearance Urine pH (5.0-8.0) Ur Specific [place] (1.001-1.035) Urine Protein (NEGATIVE) mg/dL Urine Glucose (UA) (NEGATIVE) mg/dL Urine Ketones (NEGATIVE) mg/dL Urine Occult Blood (NEGATIVE) Urine Nitrite (NEGATIVE) Urine Bilirubin (NEGATIVE) Urine Urobilinogen (<2.0) EU/dL Ur Leukocyte Esterase (NEGATIVE) Urine RBC (0-2/HPF) Urine WBC (0-5/HPF) Ur Epithelial Cells (NONE-FEW) Urine Bacteria (NEGATIVE) Blood Type O POSITIVE Antibody Screen NEGATIVE Meds: Medications Generic Name Dose Route Start Last Admin Trade Name Freq PRN Reason Stop Dose Admin Piperacillin Sod/Tazobactam 50 mls @ 100 mls/hr 10/23/18 15:03 Sod 3.375 gm/ Sodium Chloride IV 10/23/18 15:32 ONETIME ONE Vancomycin HCl 1 gm/ Sodium 250 mls @ 250 mls/hr 10/23/18 15:03 Chloride IV 10/23/18 16:02 ONETIME ONE Discontinued Medications Generic Name Dose Route Start Last Admin Trade Name Rosio PRN Reason Stop Dose Admin Hydrocodone Bitart/Acetaminophen 1 tab 10/23/18 14:08 10/23/18 14:12 [place] 325-5 Mg PO 10/23/18 14:09 1 tab ONETIME ONE Administration Sodium Chloride 1,000 mls @ 999 mls/hr 10/23/18 13:44 10/23/18 14:13 Normal Saline IV 10/23/18 14:44 999 mls/hr STAT ONE Administration Morphine Sulfate 2 mg 10/23/18 13:48 10/23/18 14:13 Morphine IVPUSH 10/23/18 13:49 Not Given ONETIME ONE Departure - Departure Time of Disposition: 15:10 Disposition: Home, Self-Care 01 Condition: Good Clinical Impression: Pyelonephritis, complication - Discharge Information Referrals: PCP,None [Primary Care Provider] - Forms: ED Department Discharge - My Orders Last 24 Hours: My Active Orders 10/23/18 13:30 CULTURE URINE [RM] Stat 10/23/18 13:40 D Dimer [D-DIMER QUANTITATIVE] [COAG] Stat 10/23/18 13:45 Blood Culture x2 Reflex Set [OM.PC] Stat 10/23/18 13:54 CULTURE BLOOD [BC] Stat 10/23/18 14:00 CULTURE BLOOD [BC] Stat 10/23/18 15:03 Piperacillin/Tazobactam [Piperacil-Tazobact] 3.375 gm Sodium Chloride 0.9% [ Normal Saline] 50 ml IV ONETIME Vancomycin [Vancocin] 1 gm Sodium Chloride 0.9% [Normal Saline] 250 ml IV ONETIME 10/23/18 15:08 LACTATE WITH REFLEX [BG] Stat Sodium Chloride 0.9% [Normal Saline] 1,000 ml IV STAT - Assessment/Plan Last 24 Hours: My Active Orders 10/23/18 13:30 CULTURE URINE [RM] Stat 10/23/18 13:40 D Dimer [D-DIMER QUANTITATIVE] [COAG] Stat 10/23/18 13:45 Blood Culture x2 Reflex Set [OM.PC] Stat 10/23/18 13:54 CULTURE BLOOD [BC] Stat 10/23/18 14:00 CULTURE BLOOD [BC] Stat 10/23/18 15:03 Piperacillin/Tazobactam [Piperacil-Tazobact] 3.375 gm Sodium Chloride 0.9% [ Normal Saline] 50 ml IV ONETIME Vancomycin [Vancocin] 1 gm Sodium Chloride 0.9% [Normal Saline] 250 ml IV ONETIME 10/23/18 15:08 LACTATE WITH REFLEX [BG] Stat Sodium Chloride 0.9% [Normal Saline] 1,000 ml IV STAT
[2018-10-23] MEDS ORDERED: Morphine 2 MG/ML Syringe IVPUSH ONE (13:48)
[2018-10-23] MEDS ORDERED: Acetaminophen/HYDROcodone 325-5 MG Tab PO ONE (14:08)
[2018-10-23 14:30] LABS: CHLORIDE,CL 104 mmol/L (98-107); SODIUM,NA 138 mmol/L (136-145)
[2018-10-23] MEDS ORDERED: Piperacillin/Tazobactam 3.375 GM in Sodium Chloride 0.9% 50 ML IV ONE (15:03)
[2018-10-23] MEDS ORDERED: Iopamidol 755 Mg/ML 100 ML Bottle IVPUSH STA (16:12)
--- NOTE | 2018-10-23 16:48 | CT ---
INDICATION: tachycardia, hypotension, abdominal pain. Patient is 5 days . TECHNIQUE: CT chest, abdomen, pelvis pulmonary embolism protocol. 80 mL Isovue 30. COMPARISON: None FINDINGS: CHEST: Cardiovascular structures: No pulmonary embolism. Normal heart size. Aorta and main pulmonary artery are normal in caliber. No pericardial effusion. Mediastinum and seng: No mediastinal or hilar lymphadenopathy. Lungs: Central airways are patent. No focal consolidation. No pulmonary nodules. No pleural effusion. Chest wall and axilla: No mass or adenopathy. ABDOMEN AND PELVIS: Liver: Unremarkable. Spleen: Unremarkable. Pancreas: Unremarkable. Gallbladder and bile ducts: Unremarkable. Kidneys: Unremarkable. Adrenal glands: Unremarkable. GI tract: No bowel obstruction. Vascular structures: Unremarkable. Lymph nodes: Unremarkable. Miscellaneous: No ascites. No free air. Pelvic Organs: Enlarged, heterogeneous uterus. Bones: Within normal limits. IMPRESSION: 1. No pulmonary embolism. 2. Enlarged, heterogeneous uterus, which can be seen in the normal state. Please note, endometritis cannot be excluded. Otherwise, no acute abnormality in the chest, abdomen, and pelvis. Dictated by Nisha Martinez MD @ 10/23/2018 4:49:26 PM Please note that all CT scans at this facility use dose modulation, iterative reconstruction, and/or weight-based dosing when appropriate to reduce radiation dose to as low as reasonably achievable. Dictated by: Nisha Martinez MD @ 10/23/2018 16:49:44 (Electronically Signed)
--- NOTE | 2018-10-23 16:52 | CT ---
INDICATION: tachycardia, hypotension, abdominal pain. Patient is 5 days . TECHNIQUE: CT chest, abdomen, pelvis pulmonary embolism protocol. 80 mL Isovue 30. COMPARISON: None FINDINGS: CHEST: Cardiovascular structures: No pulmonary embolism. Normal heart size. Aorta and main pulmonary artery are normal in caliber. No pericardial effusion. Mediastinum and seng: No mediastinal or hilar lymphadenopathy. Lungs: Central airways are patent. No focal consolidation. No pulmonary nodules. No pleural effusion. Chest wall and axilla: No mass or adenopathy. ABDOMEN AND PELVIS: Liver: Unremarkable. Spleen: Unremarkable. Pancreas: Unremarkable. Gallbladder and bile ducts: Unremarkable. Kidneys: Unremarkable. Adrenal glands: Unremarkable. GI tract: No bowel obstruction. Vascular structures: Unremarkable. Lymph nodes: Unremarkable. Miscellaneous: No ascites. No free air. Pelvic Organs: Enlarged, heterogeneous uterus. Bones: Within normal limits. IMPRESSION: 1. No pulmonary embolism. 2. Enlarged, heterogeneous uterus, which can be seen in the normal state. Please note, endometritis cannot be excluded. Otherwise, no acute abnormality in the chest, abdomen, and pelvis. Dictated by Nisha Martinez MD @ 10/23/2018 4:50:17 PM Please note that all CT scans at this facility use dose modulation, iterative reconstruction, and/or weight-based dosing when appropriate to reduce radiation dose to as low as reasonably achievable. Dictated by: Nisha Martinez MD @ 10/23/2018 16:50:23 (Electronically Signed)
[2018-10-23] MEDS ORDERED: Acetaminophen/HYDROcodone 325-5 MG Tab PO PRN (17:29)
[2018-10-23] MEDS: Sodium Chloride 0.9% 1,000 ML IV SCH (18:09)
[2018-10-23] MEDS: Acetaminophen 325 MG Tab PO PRN (19:44)
[2018-10-23] MEDS: Piperacillin/Tazobactam 3.375 GM in Sodium Chloride 0.9% 50 ML IV SCH (21:06)
[2018-10-23] MEDS ORDERED: Ondansetron 4 MG/2 ML SDV IVPUSH PRN (21:55)
--- NOTE | 2018-10-23 22:05 | PCM.HP ---
H&P History of Present Illness - General Date of Service: 10/23/18 Admit Problem/Dx: Admission Diagnosis/Problem Admission Diagnosis/Problem Pyelonephritis - History of Present Illness Initial Comments - Free Text/Narative: 23 yo female who is 5 days of normal vaginal delivery who presents with right flank pain and chills. She was noted to be tachycardic and hypotensive in the ED. White count of 11,550 and Lactic acid of 2.5 and pyuria seen on UA. CTA of chest and CT of abdomen and pelvis was unremarkable. She was given IV fluids, vancomycin and zosyn in the ED. back Pain Score (Numeric/FACES): 3 - Related Data Allergies/Adverse Reactions: Allergies Allergy/AdvReac Type Severity Reaction Status Date / Time No Known Allergies Allergy Verified 10/23/18 13:30 Home Medications: Home Meds Omeprazole Magnesium [Prilosec Otc] 10/18/18 [History] PNV #116/Iron Fumarate/FA/DHA [Expecta Combo Pack] 1 10/18/18 [History] Past Medical History - Past Health History Medical/Surgical History: Denies Medical/Surgical History HEENT History: Reports: None Cardiovascular History: Reports: None Respiratory History: Reports: None Gastrointestinal History: Reports: None Genitourinary History: Reports: None RN WELLNESS History: Reports: Musculoskeletal History: Reports: None Neurological History: Reports: None Psychiatric History: Reports: None Endocrine/Metabolic History: Reports: None Hematologic History: Reports: None Immunologic History: Reports: None Oncologic (Cancer) History: Reports: None Dermatologic History: Reports: None - Infectious Disease History Infectious Disease History: Reports: Chicken Pox - Past Surgical History Head Surgeries/Procedures: Reports: None HEENT Surgical History: Reports: None Cardiovascular Surgical History: Reports: None Respiratory Surgical History: Reports: None GI Surgical History: Reports: None Female Surgical History: Reports: None Endocrine Surgical History: Reports: None Neurological Surgical History: Reports: None Musculoskeletal Surgical History: Reports: None Oncologic Surgical History: Reports: None Dermatological Surgical History: Reports: None Social & Family History - Family History Family Medical History: Noncontributory HEENT: Reports: None Cardiac: Reports: None Respiratory: Reports: None GI: Reports: None : Reports: None OBGYN: Reports: None Musculoskeletal: Reports: None Neurological: Reports: None Psychiatric: Reports: None Endocrine/Metabolic: Reports: None Hematologic: Reports: None Dermatologic: Reports: None Oncologic: Reports: None - Tobacco Use Smoking Status *Q: Never Smoker Second Hand Smoke Exposure: No - Caffeine Use Caffeine Use: Reports: Coffee, Soda Caffeine Use Comment: 1 cup, 1 can /day - Recreational Drug Use Recreational Drug Use: No - Living Situation & Occupation Living situation: Reports: with Family H&P Review of Systems - Review of Systems: Review Of Systems: ROS reveals no pertinent complaints other than HPI. Exam - Exam Exam: See Below - Vital Signs Vital Signs: Last Vital Signs Temp 36.9 C 10/23/18 19:45 Pulse 113 H 10/23/18 19:45 Resp 16 10/23/18 19:45 BP 115/64 10/23/18 19:45 Pulse Ox 98 10/23/18 19:45 Weight: 61.825 kg - Exam General: Alert, Oriented Cardiovascular: Regular Rate, Regular Rhythm GI/Abdominal Exam: Soft, Non-Tender Back Exam: No: CVA Tenderness (L), CVA Tenderness (R) Extremities: Non-Tender, No Pedal Edema Skin: Warm, Dry, Intact - Patient Data Lab Results Last 24 hrs: Laboratory Results - last 24 hr 10/23/18 10/23/18 10/23/18 Range/Units 13:30 13:40 13:40 WBC 11.55 H (4.0-11.0) K/uL RBC 3.58 L (4.30-5.90) M/uL Hgb 11.2 L (12.0-16.0) g/dL Hct 32.2 L (36.0-46.0) % MCV 89.9 (80.0-98.0) fL MCH 31.3 (27.0-32.0) pg MCHC 34.8 (31.0-37.0) g/dL RDW Std Deviation 43.1 (28.0-62.0) fl RDW Coeff of Ashanti 13 (11.0-15.0) % Plt Count 241 (150-400) K/uL MPV 9.90 (7.40-12.00) fL Neut % (Auto) 81.7 H (48.0-80.0) % Lymph % (Auto) 13.9 L (16.0-40.0) % Harvey % (Auto) 2.6 (0.0-15.0) % Eos % (Auto) 1.7 (0.0-7.0) % Baso % (Auto) 0.1 (0.0-1.5) % Neut # (Auto) 9.4 H (1.4-5.7) K/uL Lymph # (Auto) 1.6 (0.6-2.4) K/uL Harvey # (Auto) 0.3 (0.0-0.8) K/uL Eos # (Auto) 0.2 (0.0-0.7) K/uL Baso # (Auto) 0.0 (0.0-0.1) K/uL Nucleated RBC % 0.0 /100WBC Nucleated RBCs # 0 K/uL D-Dimer, Quantitative (0.0-0.50) mg/L FEU Lactate (0.20-2.00) mmol/L Sodium 138 (136-145) mmol/L Potassium 3.6 (3.5-5.1) mmol/L Chloride 104 (98-107) mmol/L Carbon Dioxide 22.6 (21.0-32.0) mmol/L BUN 8 (7.0-18.0) mg/dL Creatinine 0.6 (0.6-1.0) mg/dL Est Cr Clr Drug Dosing 108.16 mL/min Estimated GFR (MDRD) > 60.0 ml/min Glucose 98 (74-106) mg/dL Calcium 9.0 (8.5-10.1) mg/dL Total Bilirubin 0.4 (0.2-1.0) mg/dL AST 26 (15-37) IU/L ALT 25 (14-63) IU/L Alkaline Phosphatase 106 (46-116) U/L Total Protein 6.6 (6.4-8.2) g/dL Albumin 2.6 L (3.4-5.0) g/dL Globulin 4.0 (2.6-4.0) g/dL Albumin/Globulin Ratio 0.7 L (0.9-1.6) Lipase (73-393) U/L Urine Color YELLOW Urine Appearance CLEAR Urine pH 6.0 (5.0-8.0) Ur Specific [place] 1.020 (1.001-1.035) Urine Protein 100 H (NEGATIVE) mg/dL Urine Glucose (UA) NEGATIVE (NEGATIVE) mg/dL Urine Ketones TRACE H (NEGATIVE) mg/dL Urine Occult Blood MODERATE H (NEGATIVE) Urine Nitrite POSITIVE H (NEGATIVE) Urine Bilirubin NEGATIVE (NEGATIVE) Urine Urobilinogen 0.2 (<2.0) EU/dL Ur Leukocyte Esterase MODERATE H (NEGATIVE) Urine RBC 4-6 (0-2/HPF) Urine WBC 150-200 (0-5/HPF) Ur Epithelial Cells FEW (NONE-FEW) Urine Bacteria FEW (NEGATIVE) Blood Type Antibody Screen 10/23/18 10/23/18 10/23/18 Range/Units 13:40 13:40 14:15 WBC (4.0-11.0) K/uL RBC (4.30-5.90) M/uL Hgb (12.0-16.0) g/dL Hct (36.0-46.0) % MCV (80.0-98.0) fL MCH (27.0-32.0) pg MCHC (31.0-37.0) g/dL RDW Std Deviation (28.0-62.0) fl RDW Coeff of Ashanti (11.0-15.0) % Plt Count (150-400) K/uL MPV (7.40-12.00) fL Neut % (Auto) (48.0-80.0) % Lymph % (Auto) (16.0-40.0) % Harvey % (Auto) (0.0-15.0) % Eos % (Auto) (0.0-7.0) % Baso % (Auto) (0.0-1.5) % Neut # (Auto) (1.4-5.7) K/uL Lymph # (Auto) (0.6-2.4) K/uL Harvey # (Auto) (0.0-0.8) K/uL Eos # (Auto) (0.0-0.7) K/uL Baso # (Auto) (0.0-0.1) K/uL Nucleated RBC % /100WBC Nucleated RBCs # K/uL D-Dimer, Quantitative 1.38 H (0.0-0.50) mg/L FEU Lactate (0.20-2.00) mmol/L Sodium (136-145) mmol/L Potassium (3.5-5.1) mmol/L Chloride (98-107) mmol/L Carbon Dioxide (21.0-32.0) mmol/L BUN (7.0-18.0) mg/dL Creatinine (0.6-1.0) mg/dL Est Cr Clr Drug Dosing mL/min Estimated GFR (MDRD) ml/min Glucose (74-106) mg/dL Calcium (8.5-10.1) mg/dL Total Bilirubin (0.2-1.0) mg/dL AST (15-37) IU/L ALT (14-63) IU/L Alkaline Phosphatase (46-116) U/L Total Protein (6.4-8.2) g/dL Albumin (3.4-5.0) g/dL Globulin (2.6-4.0) g/dL Albumin/Globulin Ratio (0.9-1.6) Lipase 111 (73-393) U/L Urine Color Urine Appearance Urine pH (5.0-8.0) Ur Specific Braham (1.001-1.035) Urine Protein (NEGATIVE) mg/dL Urine Glucose (UA) (NEGATIVE) mg/dL Urine Ketones (NEGATIVE) mg/dL Urine Occult Blood (NEGATIVE) Urine Nitrite (NEGATIVE) Urine Bilirubin (NEGATIVE) Urine Urobilinogen (<2.0) EU/dL Ur Leukocyte Esterase (NEGATIVE) Urine RBC (0-2/HPF) Urine WBC (0-5/HPF) Ur Epithelial Cells (NONE-FEW) Urine Bacteria (NEGATIVE) Blood Type O POSITIVE Antibody Screen NEGATIVE 10/23/18 10/23/18 Range/Units 15:17 21:07 WBC (4.0-11.0) K/uL RBC (4.30-5.90) M/uL Hgb (12.0-16.0) g/dL Hct (36.0-46.0) % MCV (80.0-98.0) fL MCH (27.0-32.0) pg MCHC (31.0-37.0) g/dL RDW Std Deviation (28.0-62.0) fl RDW Coeff of Ashanti (11.0-15.0) % Plt Count (150-400) K/uL MPV (7.40-12.00) fL Neut % (Auto) (48.0-80.0) % Lymph % (Auto) (16.0-40.0) % Harvey % (Auto) (0.0-15.0) % Eos % (Auto) (0.0-7.0) % Baso % (Auto) (0.0-1.5) % Neut # (Auto) (1.4-5.7) K/uL Lymph # (Auto) (0.6-2.4) K/uL Harvey # (Auto) (0.0-0.8) K/uL Eos # (Auto) (0.0-0.7) K/uL Baso # (Auto) (0.0-0.1) K/uL Nucleated RBC % /100WBC Nucleated RBCs # K/uL D-Dimer, Quantitative (0.0-0.50) mg/L FEU Lactate 2.5 H 1.3 (0.20-2.00) mmol/L Sodium (136-145) mmol/L Potassium (3.5-5.1) mmol/L Chloride (98-107) mmol/L Carbon Dioxide (21.0-32.0) mmol/L BUN (7.0-18.0) mg/dL Creatinine (0.6-1.0) mg/dL Est Cr Clr Drug Dosing mL/min Estimated GFR (MDRD) ml/min Glucose (74-106) mg/dL Calcium (8.5-10.1) mg/dL Total Bilirubin (0.2-1.0) mg/dL AST (15-37) IU/L ALT (14-63) IU/L Alkaline Phosphatase (46-116) U/L Total Protein (6.4-8.2) g/dL Albumin (3.4-5.0) g/dL Globulin (2.6-4.0) g/dL Albumin/Globulin Ratio (0.9-1.6) Lipase (73-393) U/L Urine Color Urine Appearance Urine pH (5.0-8.0) Ur Specific Braham (1.001-1.035) Urine Protein (NEGATIVE) mg/dL Urine Glucose (UA) (NEGATIVE) mg/dL Urine Ketones (NEGATIVE) mg/dL Urine Occult Blood (NEGATIVE) Urine Nitrite (NEGATIVE) Urine Bilirubin (NEGATIVE) Urine Urobilinogen (<2.0) EU/dL Ur Leukocyte Esterase (NEGATIVE) Urine RBC (0-2/HPF) Urine WBC (0-5/HPF) Ur Epithelial Cells (NONE-FEW) Urine Bacteria (NEGATIVE) Blood Type Antibody Screen Result Diagrams: 10/24/18 05:48 10/24/18 05:48 Ferdinand Results Last 24 hrs: Microbiology 10/23/18 13:53 Influenza Type A Antigen Screen - Final Nasopharyngeal Swab NEGATIVE INFLUENZA A VIRUS AG Influenza Type B Antigen Screen - Final NEGATIVE INFLUENZA B VIRUS AG Problem List Initiated/Reviewed/Updated: Yes Orders Last 24hrs: Active Orders 24 hr Category Date Time Status Admission Status [Patient Status] [ADT] Stat ADT 10/23/18 15:10 Active Antiembolic Devices [RC] PER UNIT ROUTINE Care 10/23/18 21:55 Ordered EKG Documentation Completion [RC] STAT Care 10/23/18 13:50 Active Oxygen Therapy [RC] PRN Care 10/23/18 21:55 Ordered Up ad Lori [RC] ASDIRECTED Care 10/23/18 21:55 Ordered VTE/DVT Education [RC] PER UNIT ROUTINE Care 10/23/18 21:55 Ordered Vital Signs [RC] Q4H Care 10/23/18 21:55 Ordered Regular Diet [DIET] Diet 10/24/18 Dinner Active BMP [BASIC METABOLIC PANEL,BMP] [CHEM] Routine Lab 10/24/18 05:11 Ordered CBC WITH AUTO DIFF [HEME] Routine Lab 10/24/18 05:11 Ordered CULTURE BLOOD [BC] Stat Lab 10/23/18 13:54 Received CULTURE BLOOD [BC] Stat Lab 10/23/18 14:00 Received CULTURE URINE [RM] Stat Lab 10/23/18 13:30 Received LACTIC ACID,WHOLE BLOOD [BG] Q6H Lab 10/24/18 03:17 Ordered LACTIC ACID,WHOLE BLOOD [BG] Q6H Lab 10/24/18 09:17 Ordered VANCOMYCIN TROUGH [CHEM] Timed Lab 10/24/18 15:30 Ordered Acetaminophen [Tylenol] Med 10/23/18 17:28 Active 650 mg PO Q6H PRN Acetaminophen/HYDROcodone [[place] 325-5 MG] Med 10/23/18 17:29 Active 1 tab PO Q6H PRN FLU Vacc [id number] 36MOS UP/PF [Fluzone Quad [id number] Med 10/24/18 12:00 Once Syringe] 60 mcg IM .ONCE ONE Ondansetron [Zofran] Med 10/23/18 21:55 Ordered 4 mg IVPUSH Q4H PRN Pharmacy to Dose - Vancomycin Med 10/23/18 17:30 Pending 1 dose .XX ASDIRECTED Piperacillin/Tazobactam [Piperacil-Tazobact] 3.375 gm Med 10/23/18 21:00 Active Sodium Chloride 0.9% [Normal Saline] 50 ml IV Q6H Sodium Chloride 0.9% [Normal Saline] 1,000 ml Med 10/23/18 17:30 Active IV ASDIRECTED Vancomycin [Vancocin] 1 gm Med 10/24/18 00:00 Active Sodium Chloride 0.9% [Normal Saline] 250 ml IV Q8H Blood Culture x2 Reflex Set [OM.PC] Stat Oth 10/23/18 13:45 Ordered Sequential Compression Device [OM.PC] Per Unit Routine Oth 10/23/18 21:55 Ordered Resuscitation Status Routine Resus Stat 10/23/18 21:55 Ordered Medication Orders Acetaminophen (Tylenol) 650 mg PO Q6H PRN PRN Reason: Pain Last Admin: 10/23/18 19:44 Dose: 650 mg Hydrocodone Bitart/Acetaminophen ([place] 325-5 Mg) 1 tab PO Q6H PRN PRN Reason: Pain Piperacillin Sod/Tazobactam (Sod 3.375 gm/ Sodium Chloride) 50 mls @ 100 mls/ hr IV Q6H [facility] Last Admin: 10/23/18 21:06 Dose: 100 mls/hr Sodium Chloride (Normal Saline) 1,000 mls @ 125 mls/hr IV ASDIRECTED [facility] Last Admin: 10/23/18 18:09 Dose: 125 mls/hr Vancomycin HCl 1 gm/ Sodium (Chloride) 250 mls @ 250 mls/hr IV Q8H [facility] Influenza Virus Vaccine (Fluzone Quad [id number] Syringe) 60 mcg IM .ONCE ONE Stop: 10/24/18 12:01 Ondansetron HCl (Zofran) 4 mg IVPUSH Q4H PRN PRN Reason: Nausea Vancomycin HCl (Pharmacy To Dose - Vancomycin) 1 dose .XX ASDIRECTED [facility] Assessment/Plan Comment:: 23 yo female admitted with pyelonephritis with sepsis Sepsis: resolving, vital signs stable, lactic acid normalized Pyelonephritis: continue Zosyn, cultures pending
[2018-10-24] MEDS: Piperacillin/Tazobactam 3.375 GM in Sodium Chloride 0.9% 50 ML IV SCH ×4 (03:34→20:23)
[2018-10-24] MEDS: Sodium Chloride 0.9% 1,000 ML IV SCH ×3 (03:35→21:39)
[2018-10-24 06:26] LABS: CHLORIDE,CL 110 mmol/L (98-107); SODIUM,NA 141 mmol/L (136-145)
[2018-10-24] MEDS: Acetaminophen 325 MG Tab PO PRN ×3 (07:54→21:35)
[2018-10-24] MEDS: Heparin Sodium 5,000 Units/ML Vial SUBCUT SCH ×3 (11:01→21:36)
--- NOTE | 2018-10-24 11:15 | PCM.PN ---
- General Info Date of Service: 10/24/18 - Review of Systems Systems Review Comment:: feeling better, flank pain resolved - Patient Data Vitals - Most Recent: Last Vital Signs Temp 36.3 C 10/24/18 07:44 Pulse 73 10/24/18 07:44 Resp 17 10/24/18 07:44 BP 113/77 10/24/18 07:44 Pulse Ox 98 10/24/18 07:44 Weight - Most Recent: 61.825 kg I&O - Last 24 Hours: Intake & Output 10/23/18 10/24/18 10/24/18 22:59 06:59 14:59 Intake Total 400 Output Total 1750 Balance -1350 Lab Results Last 24 Hours: Laboratory Results - last 24 hr 10/23/18 10/23/18 10/23/18 Range/Units 13:30 13:40 13:40 WBC 11.55 H (4.0-11.0) K/uL RBC 3.58 L (4.30-5.90) M/uL Hgb 11.2 L (12.0-16.0) g/dL Hct 32.2 L (36.0-46.0) % MCV 89.9 (80.0-98.0) fL MCH 31.3 (27.0-32.0) pg MCHC 34.8 (31.0-37.0) g/dL RDW Std Deviation 43.1 (28.0-62.0) fl RDW Coeff of Ashanti 13 (11.0-15.0) % Plt Count 241 (150-400) K/uL MPV 9.90 (7.40-12.00) fL Neut % (Auto) 81.7 H (48.0-80.0) % Lymph % (Auto) 13.9 L (16.0-40.0) % [place] % (Auto) 2.6 (0.0-15.0) % Eos % (Auto) 1.7 (0.0-7.0) % Baso % (Auto) 0.1 (0.0-1.5) % Neut # (Auto) 9.4 H (1.4-5.7) K/uL Lymph # (Auto) 1.6 (0.6-2.4) K/uL [place] # (Auto) 0.3 (0.0-0.8) K/uL Eos # (Auto) 0.2 (0.0-0.7) K/uL Baso # (Auto) 0.0 (0.0-0.1) K/uL Nucleated RBC % 0.0 /100WBC Nucleated RBCs # 0 K/uL D-Dimer, Quantitative (0.0-0.50) mg/L FEU Lactate (0.20-2.00) mmol/L Sodium 138 (136-145) mmol/L Potassium 3.6 (3.5-5.1) mmol/L Chloride 104 (98-107) mmol/L Carbon Dioxide 22.6 (21.0-32.0) mmol/L BUN 8 (7.0-18.0) mg/dL Creatinine 0.6 (0.6-1.0) mg/dL Est Cr Clr Drug Dosing 108.16 mL/min Estimated GFR (MDRD) > 60.0 ml/min Glucose 98 (74-106) mg/dL Calcium 9.0 (8.5-10.1) mg/dL Total Bilirubin 0.4 (0.2-1.0) mg/dL AST 26 (15-37) IU/L ALT 25 (14-63) IU/L Alkaline Phosphatase 106 (46-116) U/L Total Protein 6.6 (6.4-8.2) g/dL Albumin 2.6 L (3.4-5.0) g/dL Globulin 4.0 (2.6-4.0) g/dL Albumin/Globulin Ratio 0.7 L (0.9-1.6) Lipase (73-393) U/L Urine Color YELLOW Urine Appearance CLEAR Urine pH 6.0 (5.0-8.0) Ur Specific Wall 1.020 (1.001-1.035) Urine Protein 100 H (NEGATIVE) mg/dL Urine Glucose (UA) NEGATIVE (NEGATIVE) mg/dL Urine Ketones TRACE H (NEGATIVE) mg/dL Urine Occult Blood MODERATE H (NEGATIVE) Urine Nitrite POSITIVE H (NEGATIVE) Urine Bilirubin NEGATIVE (NEGATIVE) Urine Urobilinogen 0.2 (<2.0) EU/dL Ur Leukocyte Esterase MODERATE H (NEGATIVE) Urine RBC 4-6 (0-2/HPF) Urine WBC 150-200 (0-5/HPF) Ur Epithelial Cells FEW (NONE-FEW) Urine Bacteria FEW (NEGATIVE) Blood Type Antibody Screen 10/23/18 10/23/18 10/23/18 Range/Units 13:40 13:40 14:15 WBC (4.0-11.0) K/uL RBC (4.30-5.90) M/uL Hgb (12.0-16.0) g/dL Hct (36.0-46.0) % MCV (80.0-98.0) fL MCH (27.0-32.0) pg MCHC (31.0-37.0) g/dL RDW Std Deviation (28.0-62.0) fl RDW Coeff of Ashanti (11.0-15.0) % Plt Count (150-400) K/uL MPV (7.40-12.00) fL Neut % (Auto) (48.0-80.0) % Lymph % (Auto) (16.0-40.0) % [place] % (Auto) (0.0-15.0) % Eos % (Auto) (0.0-7.0) % Baso % (Auto) (0.0-1.5) % Neut # (Auto) (1.4-5.7) K/uL Lymph # (Auto) (0.6-2.4) K/uL [place] # (Auto) (0.0-0.8) K/uL Eos # (Auto) (0.0-0.7) K/uL Baso # (Auto) (0.0-0.1) K/uL Nucleated RBC % /100WBC Nucleated RBCs # K/uL D-Dimer, Quantitative 1.38 H (0.0-0.50) mg/L FEU Lactate (0.20-2.00) mmol/L Sodium (136-145) mmol/L Potassium (3.5-5.1) mmol/L Chloride (98-107) mmol/L Carbon Dioxide (21.0-32.0) mmol/L BUN (7.0-18.0) mg/dL Creatinine (0.6-1.0) mg/dL Est Cr Clr Drug Dosing mL/min Estimated GFR (MDRD) ml/min Glucose (74-106) mg/dL Calcium (8.5-10.1) mg/dL Total Bilirubin (0.2-1.0) mg/dL AST (15-37) IU/L ALT (14-63) IU/L Alkaline Phosphatase (46-116) U/L Total Protein (6.4-8.2) g/dL Albumin (3.4-5.0) g/dL Globulin (2.6-4.0) g/dL Albumin/Globulin Ratio (0.9-1.6) Lipase 111 (73-393) U/L Urine Color Urine Appearance Urine pH (5.0-8.0) Ur Specific Wall (1.001-1.035) Urine Protein (NEGATIVE) mg/dL Urine Glucose (UA) (NEGATIVE) mg/dL Urine Ketones (NEGATIVE) mg/dL Urine Occult Blood (NEGATIVE) Urine Nitrite (NEGATIVE) Urine Bilirubin (NEGATIVE) Urine Urobilinogen (<2.0) EU/dL Ur Leukocyte Esterase (NEGATIVE) Urine RBC (0-2/HPF) Urine WBC (0-5/HPF) Ur Epithelial Cells (NONE-FEW) Urine Bacteria (NEGATIVE) Blood Type O POSITIVE Antibody Screen NEGATIVE 10/23/18 10/23/18 10/24/18 Range/Units 15:17 21:07 05:48 WBC 12.41 H (4.0-11.0) K/uL RBC 2.91 L (4.30-5.90) M/uL Hgb 9.1 L (12.0-16.0) g/dL Hct 26.5 L (36.0-46.0) % MCV 91.1 (80.0-98.0) fL MCH 31.3 (27.0-32.0) pg MCHC 34.3 (31.0-37.0) g/dL RDW Std Deviation 44.5 (28.0-62.0) fl RDW Coeff of Ashanti 14 (11.0-15.0) % Plt Count 189 (150-400) K/uL MPV 10.20 (7.40-12.00) fL Neut % (Auto) 69.7 (48.0-80.0) % Lymph % (Auto) 23.8 (16.0-40.0) % [place] % (Auto) 4.2 (0.0-15.0) % Eos % (Auto) 2.2 (0.0-7.0) % Baso % (Auto) 0.1 (0.0-1.5) % Neut # (Auto) 8.7 H (1.4-5.7) K/uL Lymph # (Auto) 3.0 H (0.6-2.4) K/uL [place] # (Auto) 0.5 (0.0-0.8) K/uL Eos # (Auto) 0.3 (0.0-0.7) K/uL Baso # (Auto) 0.0 (0.0-0.1) K/uL Nucleated RBC % 0.0 /100WBC Nucleated RBCs # 0 K/uL D-Dimer, Quantitative (0.0-0.50) mg/L FEU Lactate 2.5 H 1.3 (0.20-2.00) mmol/L Sodium (136-145) mmol/L Potassium (3.5-5.1) mmol/L Chloride (98-107) mmol/L Carbon Dioxide (21.0-32.0) mmol/L BUN (7.0-18.0) mg/dL Creatinine (0.6-1.0) mg/dL Est Cr Clr Drug Dosing mL/min Estimated GFR (MDRD) ml/min Glucose (74-106) mg/dL Calcium (8.5-10.1) mg/dL Total Bilirubin (0.2-1.0) mg/dL AST (15-37) IU/L ALT (14-63) IU/L Alkaline Phosphatase (46-116) U/L Total Protein (6.4-8.2) g/dL Albumin (3.4-5.0) g/dL Globulin (2.6-4.0) g/dL Albumin/Globulin Ratio (0.9-1.6) Lipase (73-393) U/L Urine Color Urine Appearance Urine pH (5.0-8.0) Ur Specific Wall (1.001-1.035) Urine Protein (NEGATIVE) mg/dL Urine Glucose (UA) (NEGATIVE) mg/dL Urine Ketones (NEGATIVE) mg/dL Urine Occult Blood (NEGATIVE) Urine Nitrite (NEGATIVE) Urine Bilirubin (NEGATIVE) Urine Urobilinogen (<2.0) EU/dL Ur Leukocyte Esterase (NEGATIVE) Urine RBC (0-2/HPF) Urine WBC (0-5/HPF) Ur Epithelial Cells (NONE-FEW) Urine Bacteria (NEGATIVE) Blood Type Antibody Screen 10/24/18 Range/Units 05:48 WBC (4.0-11.0) K/uL RBC (4.30-5.90) M/uL Hgb (12.0-16.0) g/dL Hct (36.0-46.0) % MCV (80.0-98.0) fL MCH (27.0-32.0) pg MCHC (31.0-37.0) g/dL RDW Std Deviation (28.0-62.0) fl RDW Coeff of Ashanti (11.0-15.0) % Plt Count (150-400) K/uL MPV (7.40-12.00) fL Neut % (Auto) (48.0-80.0) % Lymph % (Auto) (16.0-40.0) % [place] % (Auto) (0.0-15.0) % Eos % (Auto) (0.0-7.0) % Baso % (Auto) (0.0-1.5) % Neut # (Auto) (1.4-5.7) K/uL Lymph # (Auto) (0.6-2.4) K/uL [place] # (Auto) (0.0-0.8) K/uL Eos # (Auto) (0.0-0.7) K/uL Baso # (Auto) (0.0-0.1) K/uL Nucleated RBC % /100WBC Nucleated RBCs # K/uL D-Dimer, Quantitative (0.0-0.50) mg/L FEU Lactate (0.20-2.00) mmol/L Sodium 141 (136-145) mmol/L Potassium 3.6 (3.5-5.1) mmol/L Chloride 110 H (98-107) mmol/L Carbon Dioxide 22.5 (21.0-32.0) mmol/L BUN 5 L (7.0-18.0) mg/dL Creatinine 0.5 L (0.6-1.0) mg/dL Est Cr Clr Drug Dosing 129.79 mL/min Estimated GFR (MDRD) > 60.0 ml/min Glucose 84 (74-106) mg/dL Calcium 8.0 L (8.5-10.1) mg/dL Total Bilirubin (0.2-1.0) mg/dL AST (15-37) IU/L ALT (14-63) IU/L Alkaline Phosphatase (46-116) U/L Total Protein (6.4-8.2) g/dL Albumin (3.4-5.0) g/dL Globulin (2.6-4.0) g/dL Albumin/Globulin Ratio (0.9-1.6) Lipase (73-393) U/L Urine Color Urine Appearance Urine pH (5.0-8.0) Ur Specific Wall (1.001-1.035) Urine Protein (NEGATIVE) mg/dL Urine Glucose (UA) (NEGATIVE) mg/dL Urine Ketones (NEGATIVE) mg/dL Urine Occult Blood (NEGATIVE) Urine Nitrite (NEGATIVE) Urine Bilirubin (NEGATIVE) Urine Urobilinogen (<2.0) EU/dL Ur Leukocyte Esterase (NEGATIVE) Urine RBC (0-2/HPF) Urine WBC (0-5/HPF) Ur Epithelial Cells (NONE-FEW) Urine Bacteria (NEGATIVE) Blood Type Antibody Screen Ferdinand Results Last 24 Hours: Microbiology 10/23/18 13:53 Influenza Type A Antigen Screen - Final Nasopharyngeal Swab NEGATIVE INFLUENZA A VIRUS AG Influenza Type B Antigen Screen - Final NEGATIVE INFLUENZA B VIRUS AG Med Orders - Current: Current Medications Acetaminophen (Tylenol) 650 mg PO Q6H PRN PRN Reason: Pain Last Admin: 10/24/18 07:54 Dose: 650 mg Hydrocodone Bitart/Acetaminophen ([place] 325-5 Mg) 1 tab PO Q6H PRN PRN Reason: Pain Heparin Sodium (Porcine) (Heparin Sodium) 5,000 units SUBCUT Q8HR [facility] Last Admin: 10/24/18 11:01 Dose: 5,000 units Piperacillin Sod/Tazobactam (Sod 3.375 gm/ Sodium Chloride) 50 mls @ 100 mls/ hr IV Q6H [facility] Last Admin: 10/24/18 09:36 Dose: 100 mls/hr Sodium Chloride (Normal Saline) 1,000 mls @ 125 mls/hr IV ASDIRECTED [facility] Last Admin: 10/24/18 03:35 Dose: 125 mls/hr Vancomycin HCl 1 gm/ Sodium (Chloride) 250 mls @ 250 mls/hr IV Q8H [facility] Last Admin: 10/24/18 07:55 Dose: 250 mls/hr Influenza Virus Vaccine (Fluzone Quad [id number] Syringe) 60 mcg IM .ONCE ONE Stop: 10/24/18 12:01 Ondansetron HCl (Zofran) 4 mg IVPUSH Q4H PRN PRN Reason: Nausea Vancomycin HCl (Pharmacy To Dose - Vancomycin) 1 dose .XX ASDIRECTED [facility] Discontinued Medications Hydrocodone Bitart/Acetaminophen ([place] 325-5 Mg) 1 tab PO ONETIME ONE Stop: 10/23/18 14:09 Last Admin: 10/23/18 14:12 Dose: 1 tab Sodium Chloride (Normal Saline) 1,000 mls @ 999 mls/hr IV STAT ONE Stop: 10/23/18 14:44 Last Admin: 10/23/18 14:13 Dose: 999 mls/hr Piperacillin Sod/Tazobactam (Sod 3.375 gm/ Sodium Chloride) 50 mls @ 100 mls/ hr IV ONETIME ONE Stop: 10/23/18 15:32 Last Admin: 10/23/18 15:19 Dose: 100 mls/hr Vancomycin HCl 1 gm/ Sodium (Chloride) 250 mls @ 250 mls/hr IV ONETIME ONE Stop: 10/23/18 16:02 Last Admin: 10/23/18 16:12 Dose: 250 mls/hr Sodium Chloride (Normal Saline) 1,000 mls @ 999 mls/hr IV STAT ONE Stop: 10/23/18 16:08 Last Admin: 10/23/18 15:21 Dose: 999 mls/hr Vancomycin HCl 1 gm/ Sodium (Chloride) 250 mls @ 250 mls/hr IV Q8H [facility] Influenza Virus Vaccine (Pharmacy To Dose - Influenza Vaccine) 1 each IM ONETIME ONE Stop: 10/24/18 12:01 Iopamidol (Isovue-370 (76%)) 80 ml IVPUSH ONETIME STA Stop: 10/23/18 16:13 Last Admin: 10/23/18 16:12 Dose: 80 ml Morphine Sulfate (Morphine) 2 mg IVPUSH ONETIME ONE Stop: 10/23/18 13:49 Last Admin: 10/23/18 14:13 Dose: Not Given Vancomycin HCl (Pharmacy To Dose - Vancomycin) 1 dose .XX ASDIRECTED [facility] - Exam General: Alert, Oriented Lungs: Clear to Auscultation, Normal Respiratory Effort Cardiovascular: Regular Rate, Regular Rhythm GI/Abdominal Exam: Soft, Non-Tender Back Exam: No: CVA Tenderness (L), CVA Tenderness (R) Skin: Warm, Dry, Intact - Problem List Review Problem List Initiated/Reviewed/Updated: Yes - My Orders Last 24 Hours: My Active Orders 10/23/18 17:28 Acetaminophen [Tylenol] 650 mg PO Q6H PRN 10/23/18 17:29 Acetaminophen/HYDROcodone [[place] 325-5 MG] 1 tab PO Q6H PRN 10/23/18 17:30 Pharmacy to Dose - Vancomycin 1 dose .XX ASDIRECTED Sodium Chloride 0.9% [Normal Saline] 1,000 ml IV ASDIRECTED 10/23/18 21:00 Piperacillin/Tazobactam [Piperacil-Tazobact] 3.375 gm Sodium Chloride 0.9% [ Normal Saline] 50 ml IV Q6H 10/23/18 21:55 Antiembolic Devices [RC] PER UNIT ROUTINE Oxygen Therapy [RC] PRN Up ad Lori [RC] ASDIRECTED Vital Signs [RC] Q4H Ondansetron [Zofran] 4 mg IVPUSH Q4H PRN Sequential Compression Device [OM.PC] Per Unit Routine Resuscitation Status Routine 10/24/18 12:00 FLU Vacc [id number] 36MOS UP/PF [Fluzone Quad [id number] Syringe] 60 mcg IM .ONCE ONE 10/24/18 15:00 VANCOMYCIN TROUGH [CHEM] Routine 10/24/18 Dinner Regular Diet [DIET] - Plan Plan:: 23 yo female admitted with pyelonephritis with sepsis Pyelonephritis: white count slightly higher today but overall clinically improving, continue Zosyn, cultures are pending, likely discharge home tomorrow
[2018-10-25] MEDS: Piperacillin/Tazobactam 3.375 GM in Sodium Chloride 0.9% 50 ML IV SCH ×2 (03:08→09:30)
[2018-10-25 05:56] LABS: CHLORIDE,CL 109 mmol/L (98-107); SODIUM,NA 141 mmol/L (136-145)
[2018-10-25] MEDS: Sodium Chloride 0.9% 1,000 ML IV SCH (06:13)
[2018-10-25] MEDS: Heparin Sodium 5,000 Units/ML Vial SUBCUT SCH (06:44)
[2018-10-25 09:35] VITALS: BP 113/68
[2018-10-25] MEDS ORDERED: Levofloxacin 250 MG Tab PO ONE (10:57)
--- NOTE | 2018-10-25 20:01 | PCM.DCSUM1 ---
Discharge Summary - Hospital Course Diagnosis: Stroke: No Modified Lakhwinder Scale: No Symptoms at All Modified Lakhwinder Scale Score: 0 - Discharge Data Discharge Disposition: Home, Self-Care 01 Condition: Stable - Patient Instructions Diet: Regular Diet as Tolerated Activity: As Tolerated Driving: Do Not Drive Showering/Bathing: May Shower Notify Provider of: Fever, Increased Pain, Swelling and Redness, Drainage, Nausea and/or Vomiting - Discharge Plan Prescriptions/Med Rec: levoFLOXacin [Levaquin] 750 mg PO DAILY 6 Days #6 tab Home Medications: Home Meds Omeprazole Magnesium [Prilosec Otc] 10/18/18 [History] PNV #116/Iron Fumarate/FA/DHA [Expecta Combo Pack] 1 10/18/18 [History] levoFLOXacin [Levaquin] 750 mg PO DAILY 6 Days #6 tab 10/25/18 [Rx] Patient Handouts: Pyelonephritis, Adult, [id number], Levofloxacin tablets Referrals: [facility] [Ordering Only Provider] - Junior Paniagua MD [Physician] - 11/02/18 9:00 am - Patient Data Vitals - Most Recent: Last Vital Signs Temp 36.5 C 10/25/18 08:00 Pulse 63 10/25/18 08:00 Resp 16 10/25/18 08:00 BP 113/68 10/25/18 08:00 Pulse Ox 97 10/25/18 08:00 Weight - Most Recent: 61.825 kg I&O - Last 24 hours: Intake & Output 10/25/18 10/25/18 10/25/18 06:59 14:59 22:59 Intake Total 1250 2100 Output Total 1150 Balance 100 2100 Lab Results - Last 24 hrs: Laboratory Results - last 24 hr 10/25/18 10/25/18 Range/Units 05:15 05:15 WBC 8.25 (4.0-11.0) K/uL RBC 2.98 L (4.30-5.90) M/uL Hgb 9.1 L (12.0-16.0) g/dL Hct 27.2 L (36.0-46.0) % MCV 91.3 (80.0-98.0) fL MCH 30.5 (27.0-32.0) pg MCHC 33.5 (31.0-37.0) g/dL RDW Std Deviation 44.9 (28.0-62.0) fl RDW Coeff of Ashanti 14 (11.0-15.0) % Plt Count 227 (150-400) K/uL MPV 9.90 (7.40-12.00) fL Neut % (Auto) 57.8 (48.0-80.0) % Lymph % (Auto) 33.0 (16.0-40.0) % [place] % (Auto) 6.4 (0.0-15.0) % Eos % (Auto) 2.7 (0.0-7.0) % Baso % (Auto) 0.1 (0.0-1.5) % Neut # (Auto) 4.8 (1.4-5.7) K/uL Lymph # (Auto) 2.7 H (0.6-2.4) K/uL [place] # (Auto) 0.5 (0.0-0.8) K/uL Eos # (Auto) 0.2 (0.0-0.7) K/uL Baso # (Auto) 0.0 (0.0-0.1) K/uL Nucleated RBC % 0.0 /100WBC Nucleated RBCs # 0 K/uL Sodium 141 (136-145) mmol/L Potassium 3.8 (3.5-5.1) mmol/L Chloride 109 H (98-107) mmol/L Carbon Dioxide 23.4 (21.0-32.0) mmol/L BUN 4 L (7.0-18.0) mg/dL Creatinine 0.5 L (0.6-1.0) mg/dL Est Cr Clr Drug Dosing 129.79 mL/min Estimated GFR (MDRD) > 60.0 ml/min Glucose 84 (74-106) mg/dL Calcium 8.3 L (8.5-10.1) mg/dL Total Bilirubin 0.2 (0.2-1.0) mg/dL AST 25 (15-37) IU/L ALT 27 (14-63) IU/L Alkaline Phosphatase 82 (46-116) U/L Total Protein 5.2 L (6.4-8.2) g/dL Albumin 1.9 L (3.4-5.0) g/dL Globulin 3.3 (2.6-4.0) g/dL Albumin/Globulin Ratio 0.6 L (0.9-1.6) MARY KATE Results - Last 24 hrs: Microbiology 10/23/18 14:00 Aerobic Blood Culture - Preliminary Blood - Venous - Lab Draw NO GROWTH AFTER 2 DAYS Anaerobic Blood Culture - Preliminary NO GROWTH AFTER 2 DAYS 10/23/18 13:54 Aerobic Blood Culture - Preliminary Blood - Venous NO GROWTH AFTER 2 DAYS Anaerobic Blood Culture - Preliminary NO GROWTH AFTER 2 DAYS 10/23/18 13:30 Urine Culture - Final Urine, Clean Catch Escherichia Coli Normal Urogenital Adriana Med Orders - Current: Current Medications Discontinued Medications Acetaminophen (Tylenol) 650 mg PO Q6H PRN PRN Reason: Pain Last Admin: 10/24/18 21:35 Dose: 650 mg Hydrocodone Bitart/Acetaminophen ([place] 325-5 Mg) 1 tab PO ONETIME ONE Stop: 10/23/18 14:09 Last Admin: 10/23/18 14:12 Dose: 1 tab Hydrocodone Bitart/Acetaminophen ([place] 325-5 Mg) 1 tab PO Q6H PRN PRN Reason: Pain Heparin Sodium (Porcine) (Heparin Sodium) 5,000 units SUBCUT Q8HR [facility] Last Admin: 10/25/18 06:44 Dose: 5,000 units Sodium Chloride (Normal Saline) 1,000 mls @ 999 mls/hr IV STAT ONE Stop: 10/23/18 14:44 Last Admin: 10/23/18 14:13 Dose: 999 mls/hr Piperacillin Sod/Tazobactam (Sod 3.375 gm/ Sodium Chloride) 50 mls @ 100 mls/ hr IV ONETIME ONE Stop: 10/23/18 15:32 Last Admin: 10/23/18 15:19 Dose: 100 mls/hr Vancomycin HCl 1 gm/ Sodium (Chloride) 250 mls @ 250 mls/hr IV ONETIME ONE Stop: 10/23/18 16:02 Last Admin: 10/23/18 16:12 Dose: 250 mls/hr Sodium Chloride (Normal Saline) 1,000 mls @ 999 mls/hr IV STAT ONE Stop: 10/23/18 16:08 Last Admin: 10/23/18 15:21 Dose: 999 mls/hr Piperacillin Sod/Tazobactam (Sod 3.375 gm/ Sodium Chloride) 50 mls @ 100 mls/ hr IV Q6H [facility] Last Admin: 10/25/18 09:30 Dose: 100 mls/hr Sodium Chloride (Normal Saline) 1,000 mls @ 125 mls/hr IV ASDIRECTED [facility] Last Admin: 10/25/18 06:13 Dose: 125 mls/hr Vancomycin HCl 1 gm/ Sodium (Chloride) 250 mls @ 250 mls/hr IV Q8H [facility] Vancomycin HCl 1 gm/ Sodium (Chloride) 250 mls @ 250 mls/hr IV Q8H [facility] Last Admin: 10/24/18 07:55 Dose: 250 mls/hr Influenza Virus Vaccine (Pharmacy To Dose - Influenza Vaccine) 1 each IM ONETIME ONE Stop: 10/24/18 12:01 Influenza Virus Vaccine (Fluzone Quad [id number] Syringe) 60 mcg IM .ONCE ONE Stop: 10/24/18 12:01 Last Admin: 10/25/18 10:34 Dose: Not Given Iopamidol (Isovue-370 (76%)) 80 ml IVPUSH ONETIME STA Stop: 10/23/18 16:13 Last Admin: 10/23/18 16:12 Dose: 80 ml Levofloxacin (Levaquin) 750 mg PO ONETIME ONE Stop: 10/25/18 10:58 Last Admin: 10/25/18 11:17 Dose: 750 mg Morphine Sulfate (Morphine) 2 mg IVPUSH ONETIME ONE Stop: 10/23/18 13:49 Last Admin: 10/23/18 14:13 Dose: Not Given Ondansetron HCl (Zofran) 4 mg IVPUSH Q4H PRN PRN Reason: Nausea Vancomycin HCl (Pharmacy To Dose - Vancomycin) 1 dose .XX [facility] Vancomycin HCl (Pharmacy To Dose - Vancomycin) 1 dose .XX [facility]
== END 2018-10-25 11:37 | disposition home or self-care (01) | DRG 561 ==
LOC: MW.ED 13:23 → MW.MS 15:36
PROVIDERS: ADMIT Internal Medicine; ATTEND Internal Medicine
DX: O85 Puerperal sepsis (principal)
CPT/HCPCS: 36415; 71275; 71275-26; 74177; 74177-26; 80048; 80053; 81001; 83605; 83690; 85025; 85379; 86850; 86900; 86901; 87040; 87086; 87088; 87186; 87804; 93005; 96361; 96365; 96367; 99285-25; A9270-GY; J1644; J2543; J3370; J7040; J7050; Q9967

== ENCOUNTER 2020-10-05 11:26 | Emergency (ER) | payer BC, MEDICAID ==
--- NOTE | 2020-10-05 11:31 | EDM.PDOC ---
ED HPI GENERAL MEDICAL PROBLEM - General Chief Complaint: Neuro Symptoms/Deficits Stated Complaint: FACIAL NUMBNESS Time Seen by Provider: 10/05/20 11:28 Source of Information: Reports: Patient History Limitations: Reports: No Limitations - History of Present Illness INITIAL COMMENTS - FREE TEXT/NARRATIVE: 25-year-old female presents with painless left lower facial numbness and tingling that started 6 days ago. She also notes a mild occipital headache 5 days ago, described as pressure sensation localized to the occiput, nonradiating, rated 3/10 only lasting for couple hours, abated after Tylenol. She is currently on Nexplanon. She denies any motor deficits, chest pain, shortness of breath, headache now, fever, chills, blurry vision, nausea, vomiting, diarrhea, upper or lower extremity weakness or numbness. ROS: A 10-point review of systems, other than pertinent positives and negatives as stated per HPI, is otherwise negative Past medical history: No additional pertinent history Past Surgical history: No additional pertinent history Social history: No additional pertinent history Family history: No additional pertinent history PHYSICAL EXAM General: AOx4, GCS = 15, No distress HEENT: dry mucous membrane, hypoesthesia left lower face, uvula at midline, no tongue deviation, no tenderness to left trigeminal nerve, no TMJ. Neck: supple, no meningismus, no Kernig or Brudzinski Cardiac: S1S2 RRR Respiratory: CTAB, no crackles or rales, no wheezing Abdomen: Soft, nontender, no rebound or guarding, nondistended, no pulsatile mass. Back: nontender Musculoskeletal: NVI distally, no deformity Neuro: No focal deficits, 5/5 strength and sensation to upper bilateral and bilateral lower extremity. No facial droop. Hypoesthesia to left lower face. No tongue deviation. Uvula is at midline. 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: Musculoskeletal History: Reports: None Neurological History: Reports: None Psychiatric History: Reports: None Endocrine/Metabolic History: Reports: None Hematologic History: Reports: None Immunologic History: Reports: None Oncologic (Cancer) History: Reports: None Dermatologic History: Reports: None - Infectious Disease History Infectious Disease History: Reports: Chicken Pox - Past Surgical History Head Surgeries/Procedures: Reports: None HEENT Surgical History: Reports: None Cardiovascular Surgical History: Reports: None Respiratory Surgical History: Reports: None GI Surgical History: Reports: None Female Surgical History: Reports: None Endocrine Surgical History: Reports: None Neurological Surgical History: Reports: None Musculoskeletal Surgical History: Reports: None Oncologic Surgical History: Reports: None Dermatological Surgical History: Reports: None Social & Family History - Family History Family Medical History: No Pertinent Family History HEENT: Reports: None Cardiac: Reports: None Respiratory: Reports: None GI: Reports: None : Reports: None OBGYN: Reports: None Musculoskeletal: Reports: None Neurological: Reports: None Psychiatric: Reports: None Endocrine/Metabolic: Reports: None Hematologic: Reports: None Dermatologic: Reports: None Oncologic: Reports: None - Caffeine Use Caffeine Use: Reports: Coffee, Soda Caffeine Use Comment: 1 cup, 1 can /day - Living Situation & Occupation Living situation: Reports: with Family ED ROS GENERAL - Review of Systems Review Of Systems: See Below (see dictation) ED EXAM, NEURO - Physical Exam Exam: See Below (see dictation) #1 Interpretation EKG Interpretation Comments: Heart rate = 73 bpm, normal sinus rhythm, normal QRS interval, no STEMI. EKG and rhythm strip interpreted by me at 1158 Course - Vital Signs Last Recorded V/S: Last Vital Signs Temp 97.6 F 10/05/20 11:46 Pulse 60 10/05/20 11:46 Resp 16 10/05/20 11:46 BP 128/82 10/05/20 11:46 Pulse Ox 98 02/06/21 11:46 - Orders/Labs/Meds Orders: Active Orders 24 hr Category Date Time Status Cardiac Monitoring [RC] . DIRECTED Care 10/05/20 11:29 Active EKG 12 Lead [EKG Documentation Completion] [RC] STAT Care 10/05/20 11:28 Active Pulse Oximetry Continuous Monitoring [OM.PC] CONTINUOUS Oth 10/05/20 11:30 Ordered Labs: Laboratory Tests 10/05/20 10/05/20 10/05/20 Range/Units 11:56 11:56 12:19 WBC (4.0-11.0) K/uL RBC (4.30-5.90) M/uL Hgb (12.0-16.0) g/dL Hct (36.0-46.0) % MCV (80.0-98.0) fL MCH (27.0-32.0) pg MCHC (31.0-37.0) g/dL RDW Std Deviation (28.0-62.0) fl RDW Coeff of [place] (11.0-15.0) % Plt Count (150-400) K/uL MPV (7.40-12.00) fL Neut % (Auto) (48.0-80.0) % Lymph % (Auto) (16.0-40.0) % [place] % (Auto) (0.0-15.0) % Eos % (Auto) (0.0-7.0) % Baso % (Auto) (0.0-1.5) % Neut # (Auto) (1.4-5.7) K/uL Lymph # (Auto) (0.6-2.4) K/uL [place] # (Auto) (0.0-0.8) K/uL Eos # (Auto) (0.0-0.7) K/uL Baso # (Auto) (0.0-0.1) K/uL Nucleated RBC % /100WBC Nucleated RBCs # K/uL INR APTT (18.6-31.3) SEC Sodium 142 (136-145) mmol/L Potassium 3.8 (3.5-5.1) mmol/L Chloride 105 (98-107) mmol/L Carbon Dioxide 26.5 (21.0-32.0) mmol/L BUN 11 (7.0-18.0) mg/dL Creatinine 0.7 (0.6-1.0) mg/dL Est Cr Clr Drug Dosing 91.09 mL/min Estimated GFR (MDRD) > 60.0 ml/min Glucose 99 (74-106) mg/dL Calcium 8.4 L (8.5-10.1) mg/dL Total Bilirubin 0.4 (0.2-1.0) mg/dL AST 13 L (15-37) IU/L ALT 21 (14-63) IU/L Alkaline Phosphatase 71 (46-116) U/L Troponin I < 0.050 (0.000-0.056) ng/mL Total Protein 7.2 (6.4-8.2) g/dL Albumin 3.9 (3.4-5.0) g/dL Globulin 3.3 (2.6-4.0) g/dL Albumin/Globulin Ratio 1.2 (0.9-1.6) Urine Color YELLOW Urine Appearance SLT CLOUDY Urine pH 7.5 (5.0-8.0) Ur Specific [place] 1.015 (1.001-1.035) Urine Protein NEGATIVE (NEGATIVE) mg/dL Urine Glucose (UA) NEGATIVE (NEGATIVE) mg/dL Urine Ketones NEGATIVE (NEGATIVE) mg/dL Urine Occult Blood NEGATIVE (NEGATIVE) Urine Nitrite NEGATIVE (NEGATIVE) Urine Bilirubin NEGATIVE (NEGATIVE) Urine Urobilinogen 0.2 (<2.0) EU/dL Ur Leukocyte Esterase TRACE H (NEGATIVE) Urine RBC 0-2 (0-2/HPF) Urine WBC 0-2 (0-5/HPF) Ur Epithelial Cells OCCASIONAL (NONE-FEW) Amorphous Sediment LIGHT (NEGATIVE) Urine Bacteria RARE (NEGATIVE) Urine HCG, Qual NEGATIVE (NEGATIVE) 10/05/20 10/05/20 Range/Units 12:19 12:19 WBC 5.93 (4.0-11.0) K/uL RBC 4.24 L (4.30-5.90) M/uL Hgb 13.2 (12.0-16.0) g/dL Hct 38.9 (36.0-46.0) % MCV 91.7 (80.0-98.0) fL MCH 31.1 (27.0-32.0) pg MCHC 33.9 (31.0-37.0) g/dL RDW Std Deviation 41.7 (28.0-62.0) fl RDW Coeff of [place] 12 (11.0-15.0) % Plt Count 263 (150-400) K/uL MPV 10.30 (7.40-12.00) fL Neut % (Auto) 50.2 (48.0-80.0) % Lymph % (Auto) 43.7 H (16.0-40.0) % [place] % (Auto) 5.1 (0.0-15.0) % Eos % (Auto) 0.8 (0.0-7.0) % Baso % (Auto) 0.2 (0.0-1.5) % Neut # (Auto) 3.0 (1.4-5.7) K/uL Lymph # (Auto) 2.6 H (0.6-2.4) K/uL [place] # (Auto) 0.3 (0.0-0.8) K/uL Eos # (Auto) 0.1 (0.0-0.7) K/uL Baso # (Auto) 0.0 (0.0-0.1) K/uL Nucleated RBC % 0.0 /100WBC Nucleated RBCs # 0 K/uL INR 1.04 APTT 26.5 (18.6-31.3) SEC Sodium (136-145) mmol/L Potassium (3.5-5.1) mmol/L Chloride (98-107) mmol/L Carbon Dioxide (21.0-32.0) mmol/L BUN (7.0-18.0) mg/dL Creatinine (0.6-1.0) mg/dL Est Cr Clr Drug Dosing mL/min Estimated GFR (MDRD) ml/min Glucose (74-106) mg/dL Calcium (8.5-10.1) mg/dL Total Bilirubin (0.2-1.0) mg/dL AST (15-37) IU/L ALT (14-63) IU/L Alkaline Phosphatase (46-116) U/L Troponin I (0.000-0.056) ng/mL Total Protein (6.4-8.2) g/dL Albumin (3.4-5.0) g/dL Globulin (2.6-4.0) g/dL Albumin/Globulin Ratio (0.9-1.6) Urine Color Urine Appearance Urine pH (5.0-8.0) Ur Specific [place] (1.001-1.035) Urine Protein (NEGATIVE) mg/dL Urine Glucose (UA) (NEGATIVE) mg/dL Urine Ketones (NEGATIVE) mg/dL Urine Occult Blood (NEGATIVE) Urine Nitrite (NEGATIVE) Urine Bilirubin (NEGATIVE) Urine Urobilinogen (<2.0) EU/dL Ur Leukocyte Esterase (NEGATIVE) Urine RBC (0-2/HPF) Urine WBC (0-5/HPF) Ur Epithelial Cells (NONE-FEW) Amorphous Sediment (NEGATIVE) Urine Bacteria (NEGATIVE) Urine HCG, Qual (NEGATIVE) - Re-Assessments/Exams Free Text/Narrative Re-Assessment/Exam: 10/05/20 14:16 She is currently stable for discharge. I performed a repeat exam and did not appreciate new abnormal findings. Patient has no functional motor deficit. Exhibits normal vital signs and has a normal gait on road test. I am placing her for outpatient MRI with results sent to Dr. Roper, I advised the patient to return to the ER for reevaluation if symptoms worsened, including fever, worsening pain, or any other worrisome symptoms. I instructed the patient to follow up with Dr. Roper (neurology) within 2-3 days. MEDICAL DECISION MAKING: I reviewed the patients past medical records, lab and radiographic findings. I discussed the case with the patient. My differential diagnosis included: CVA, TIA, trigeminal neuralgia. Patient presented with hypoesthesia to left lower face for 6 days. tPA was considered but withheld secondary to prolonged last known well. Patient has an NIHSS = 1 for hypoesthesia to the left lower face. There was no functional motor deficit or facial droop. I ordered her for outpatient MRI and follow-up with Dr. Roper (neurology) within 2 to 3 days. I gave her strict return precautions for worsening symptoms or any functional motor deficits that would warrant additional work-up. Departure - Departure Time of Disposition: 14:15 Disposition: Home, Self-Care 01 Condition: Good Clinical Impression: Left facial numbness - Discharge Information *PRESCRIPTION DRUG MONITORING PROGRAM REVIEWED*: Not Applicable *COPY OF PRESCRIPTION DRUG MONITORING REPORT IN PATIENT KELSEY: Not Applicable Prescriptions: Aspirin [Niurka Chewable Aspirin] 81 mg PO DAILY #15 tab.chew Instructions: Paresthesia Referrals: PCP,None [Primary Care Provider] - Forms: ED Department Discharge Additional Instructions: The need for follow-up, as well as the timing and circumstances, are variable depending upon the specifics of your emergency department visit. If you don't have a primary care physician on staff, we will provide you with a referral. We always advise you to contact your personal physician following an emergency department visit to inform them of the circumstance of the visit and for follow-up with them and/or the need for any referrals to a consulting specialist. The emergency department will also refer you to a specialist when appropriate. This referral assures that you have the opportunity for follow-up care with a specialist. All of these measure are taken in an effort to provide you with optimal care, which includes your follow-up. Under all circumstances we always encourage you to contact your private physician who remains a resource for coordinating your care. When calling for follow-up care, please make the office aware that this follow-up is from your recent emergency room visit. If for any reason you are refused follow-up, please contact the [facility] Emergency Department at and asked to speak to the emergency department charge nurse. If you do not have a primary care doctor, please follow up with the clinics below within 3-5 days. [facility] - Neurology Professional Building [address] [place] [address], [address] [place] [address] Sepsis Event Note (ED) - Focused Exam Vital Signs: Vital Signs Temp Pulse Resp BP Pulse Ox 10/05/20 11:46 97.6 F 60 16 128/82 98 - My Orders Last 24 Hours: My Active Orders 10/05/20 11:28 EKG 12 Lead [EKG Documentation Completion] [RC] STAT 10/05/20 11:29 Cardiac Monitoring [RC] . DIRECTED 10/05/20 11:30 Pulse Oximetry Continuous Monitoring [OM.PC] CONTINUOUS - Assessment/Plan Last 24 Hours: My Active Orders 10/05/20 11:28 EKG 12 Lead [EKG Documentation Completion] [RC] STAT 10/05/20 11:29 Cardiac Monitoring [RC] . DIRECTED 10/05/20 11:30 Pulse Oximetry Continuous Monitoring [OM.PC] CONTINUOUS
[2020-10-05 13:11] LABS: BLOOD UREA NITROGEN,BUN 11 mg/dL (7.0-18.0); CARBON DIOXIDE,CO2 26.5 mmol/L (21.0-32.0); CHLORIDE,CL 105 mmol/L (98-107); GLUCOSE RANDOM 99 mg/dL (74-106); POTASSIUM,K 3.8 mmol/L (3.5-5.1); SODIUM,NA 142 mmol/L (136-145)
--- NOTE | 2020-10-05 13:13 | CT ---
Indication: Pt w/facial numbness x 1 day. Technique: CT of the head without contrast. Coronal and sagittal reformats. Bone and soft tissue windows. Comparison: No prior studies available for comparison at this institution. Findings: No acute intracranial hemorrhage or extra-axial collection. No evidence of acute cortical infarction. No mass effect or midline shift. Normal cerebral volume. The ventricles are normal in size, shape and contour. There is normal hernandez and white matter differentiation. The orbital contents are normal. No calvarial fractures. No lytic or sclerotic osseous lesions within the calvarium or skull base. Scalp and other imaged soft tissue structures are normal. Mastoid air cells are clear. Paranasal sinuses are well aerated. Impression: No acute intracranial abnormality. Please note that all CT scans at this facility use dose modulation, iterative reconstruction, and/or weight-based dosing when appropriate to reduce radiation dose to as low as reasonably achievable. Dictated by Paramjit Morrison MD @ Oct 05 2020 1:08PM Signed by Dr. Paramjit Morrison @ Oct 05 2020 1:11PM
--- NOTE | 2020-10-05 13:18 | CR ---
INDICATION: Chest pain. TECHNIQUE: One view of the chest. COMPARISON: Chest CT 10/23/2018. FINDINGS: The cardiomediastinal silhouette size is normal. There is no focal pulmonary opacity, pleural effusion or pneumothorax. The visualized osseous structures are unremarkable for age. IMPRESSION: No acute cardiopulmonary abnormality. Dictated by Court Ledezma MD @ Oct 05 2020 1:14PM Signed by Dr. Court Ledezma @ Oct 05 2020 1:15PM
[2020-10-05 15:53] VITALS: BP 96/53; PULSE 79
== END 2020-10-05 14:43 | disposition home or self-care (01) ==
LOC: MW.ED 11:26
DX: R20.0 Anesthesia of skin (principal); Z79.82 Long term (current) use of aspirin
CPT/HCPCS: 36415; 70450; 70450-26; 71045; 71045-26; 80053; 81001; 81025; 84484; 85025; 85610; 85730; 93005; 93010; 99284; 99284-25